=== PATIENT | female | born 1995 | race Caucasian/White ===

== ENCOUNTER 2020-01-27 10:49 | Outpatient (REF) | payer OTHER, MEDICAID, SELFPAY ==
--- NOTE | 2020-01-27 | US_ITS ---
EXAMINATION: US OBSTETRICAL CLINICAL INFORMATION: 24-year-old at 17.6 weeks of gestation Suspected anomaly COMPARISON: 01/24/2020 TECHNIQUE: Real-time transabdominal ultrasound was performed using C1-5 megahertz transducer. FINDINGS: A single, active, fetus is seen in vertex presentation. The placenta is anterior without previa, and the amniotic fluid volume is wnl. MEASUREMENTS: 1. Biparietal Diameter: 4.1 cm; 18.4 wks 2. Occipital Frontal Diameter: 5.1 cm 3. Head Circumference: 14.92 cm; 18.1 wks 4. Abdominal Circumference: 12.1 cm; 17.6 wks 5. Femur Length: 2.6 cm; 17.6 wks 6. Humerus Length: 2.6 cm; 18.1 wks 7. Tibia Length: 2.4 cm; 18.4 wks 8. Ulna Length: 2.4 cm; 18.3 wks 9. Lateral ventricle: 0.56 cm 10. Cerebellum: 1.7 cm; 17.6 wks 11. Cisterna Magna: 0.41 cm 12. Nuchal Fold: 2.9 mm 13. Heart Rate: 147 beats per minute Rt ovary: normal Lt ovary: Unable to visualize Cervical length 3.4 cm on T/A. GESTATIONAL AGE: 1. Established GA: 17.6 wks 2. GA from COUNTS INCLUDE 234 BEDS AT THE [facility]: 18.1 wks ESTIMATED DATE OF DELIVERY: 1. Established ADRIAN: 06/30/2020 2. ADRIAN from COUNTS INCLUDE 234 BEDS AT THE [facility]: 06/28/2020 ANATOMY: The visualized anatomy includes but not limited to: 1. Cranium: Normal 2. Intracranial anatomy: cavum septum pellucidi, lateral ventricles, choroid plexus, cerebellum, posterior fossa, third and fourth ventricles. 3. face: orbits, lip/palate, profile, nasal bone 4. Heart: four-chamber view of the heart, ventricular septum, foramen ovale, pulmonary vein, left and right outflow tracts, three-vessel view, 3 vessel trachea view, aortic and ductal arches, situs.. 5. Diaphragm: Normal 6. Abdominal wall: Normal 7. Cord Insertion: Normal 8. Spine: Cervical, thoracic, lumbar, sacral. 9. Stomach: Normal size and shape 10. Right Kidney: Normal 11. Left Kidney: Normal 12. 3 vessel cord: Normal 13. Upper extremity: Open hands, fifth digit. 14. Lower extremity: Tibia, fibula, bilateral feet. 15. Bladder: Normal 16. Genitalia: Female, patient aware IMPRESSION: 1. Single, living, intrauterine with appropriate biometry. 2. Normal survey DISCUSSION: I reviewed today's ultrasound findings. We discussed the limitations of ultrasound in diagnosing aneuploidy and other congenital abnormalities. I reviewed the differences between screening test and diagnostic test. Amniocentesis was discussed and declined. She was informed that the baseline incidence of congenital abnormalities is approximately 3-5%. Not all these conditions are diagnosable in utero. RECOMMENDATIONS: 1. No further ultrasound has been scheduled at this time. Thank you for allowing me to participate in her care. Visiting time 25 minutes. Majority of this visit was spent reviewing and discussing her care.
== END 2020-01-27 10:50 | disposition home or self-care (01) ==
LOC: HO.US 10:49
PROVIDERS: PCP Internal Medicine; Visit Provider Advanced Practice Midwife
DX: Z34.82 Encounter for supervision of other normal pregnancy, second trimester (principal); Z3A.17 17 weeks gestation of pregnancy
CPT/HCPCS: 76811

== ENCOUNTER → 2020-02-03 10:29 | Outpatient (BNVA) | payer OTHER, MEDICAID, SELFPAY | PROVIDERS: Visit Provider Obstetrics & Gynecology | DX: Z34.82 Encounter for supervision of other normal pregnancy, second trimester (principal) | CPT/HCPCS: 99212 ==

== ENCOUNTER → 2020-03-12 13:34 | Outpatient (BNVA) | payer OTHER, MEDICAID, SELFPAY | PROVIDERS: PCP Internal Medicine; Visit Provider Advanced Practice Midwife | DX: Z34.82 Encounter for supervision of other normal pregnancy, second trimester (principal) | CPT/HCPCS: 99212 ==

== ENCOUNTER → 2020-04-19 10:36 | Outpatient (BNVA) | payer OTHER, MEDICAID, SELFPAY | PROVIDERS: Visit Provider Obstetrics & Gynecology | DX: Z34.80 Encounter for supervision of other normal pregnancy, unspecified trimester (principal) | CPT/HCPCS: 81003; 99212 ==

== ENCOUNTER → 2020-05-07 11:32 | Outpatient (BNVA) | payer OTHER, MEDICAID, SELFPAY | PROVIDERS: PCP Internal Medicine; Visit Provider Advanced Practice Midwife | DX: Z34.80 Encounter for supervision of other normal pregnancy, unspecified trimester (principal) | CPT/HCPCS: 81003; 90471; 90715; 99212 ==

== ENCOUNTER → 2020-05-21 13:28 | Outpatient (BNVA) | payer OTHER, MEDICAID, SELFPAY | PROVIDERS: PCP Internal Medicine; Visit Provider Advanced Practice Midwife | DX: Z34.80 Encounter for supervision of other normal pregnancy, unspecified trimester (principal) | CPT/HCPCS: 81003; 99212 ==

== ENCOUNTER 2020-05-22 09:50 | Outpatient (REF) | payer OTHER, MEDICAID, SELFPAY ==
[2020-05-22 11:39] LABS: Hematocrit 25.6 % (37-47); Hemoglobin 7.7 g/dl (12.0-16.0); Mean Corpuscular HGB Conc 30.1 g/dl (31.0-35.0); Mean Corpuscular Hemoglobin 26.3 pg (27.0-33.0); Mean Corpuscular Volume 87.4 fL (80-98); Mean Platelet Volume 11.1 fL (9.4-12.3); Platelet Count 264 X10*3/uL (160-400); Red Blood Count 2.93 X10*6/uL (4.20-5.50); Red Cell Distribution Width 13.3 % (11.0-16.0); White Blood Count 7.2 X10*3/uL (4.8-10.8)
[2020-05-22 12:41] LABS: Glucose 1 Hour PP 50gm Dose 127 mg/dL (60-140)
[2020-05-23 08:11] LABS: Syphilis Screen Nonreactive (Nonreactive)
[2020-05-23 09:01] LABS: HIV AB/AG Nonreactive (Nonreactive); HIV Num 1 0.07 S/CO (0.00-0.99)
== END 2020-05-22 09:51 | disposition home or self-care (01) ==
LOC: HO.LAB 09:50
PROVIDERS: PCP Internal Medicine; Visit Provider Advanced Practice Midwife
DX: O99.019 Anemia complicating pregnancy, unspecified trimester (principal)
CPT/HCPCS: 36415; 85027; 86780; 87389

== ENCOUNTER → 2020-06-06 11:55 | Outpatient (BNVA) | payer OTHER, MEDICAID, SELFPAY | PROVIDERS: PCP Internal Medicine; Visit Provider Advanced Practice Midwife | DX: Z34.80 Encounter for supervision of other normal pregnancy, unspecified trimester (principal) | CPT/HCPCS: 81003; 99212 ==

== ENCOUNTER → 2020-06-14 13:41 | Outpatient (BNVA) | payer OTHER, MEDICAID, SELFPAY | PROVIDERS: PCP Internal Medicine; Visit Provider Advanced Practice Midwife | DX: Z76.89 Persons encountering health services in other specified circumstances (principal) | CPT/HCPCS: 99212 ==

== ENCOUNTER 2020-06-18 08:20 | Outpatient (REF) | payer OTHER, MEDICAID, SELFPAY | END 2020-06-18 08:21 | disposition home or self-care (01) | LOC: HO.LAB 08:20 | PROVIDERS: PCP Internal Medicine; Visit Provider Internal Medicine Medical Oncology | DX: Z13.89 Encounter for screening for other disorder (principal) ==

== ENCOUNTER 2020-06-21 08:29 | Outpatient (REF) | payer OTHER, MEDICAID, SELFPAY ==
[2020-06-22 14:02] LABS: C. trachomatis RNA TMA NOT DETECTED (NOT DETECTED); N. gonorrhoeae RNA TMA NOT DETECTED (NOT DETECTED)
== END 2020-06-21 08:30 | disposition home or self-care (01) ==
LOC: HO.LAB 08:29
PROVIDERS: PCP Internal Medicine; Visit Provider Advanced Practice Midwife
DX: O99.013 Anemia complicating pregnancy, third trimester (principal); D64.9 Anemia, unspecified; O26.893 Other specified pregnancy related conditions, third trimester; R51.9 Headache, unspecified; Z3A.37 37 weeks gestation of pregnancy; Z79.899 Other long term (current) drug therapy
CPT/HCPCS: 36415; 81003; 87081; 87491; 87591; 99212

== ENCOUNTER 2020-06-25 08:35 | Outpatient (REF) | payer OTHER, MEDICAID, SELFPAY | END 2020-06-25 08:36 | disposition home or self-care (01) | LOC: HO.MDS 08:35 | PROVIDERS: PCP Internal Medicine; Visit Provider Internal Medicine Medical Oncology | DX: D50.9 Iron deficiency anemia, unspecified (principal) | CPT/HCPCS: 96365; 96372; J1439 ==

== ENCOUNTER → 2020-06-28 08:33 | Outpatient (BNVA) | payer OTHER, MEDICAID, SELFPAY | PROVIDERS: PCP Internal Medicine; Visit Provider Advanced Practice Midwife | DX: O36.8190 Decreased fetal movements, unspecified trimester, not applicable or unspecified (principal) | CPT/HCPCS: 81003; 99212 ==

== ENCOUNTER 2020-06-28 10:25 | Outpatient (REF) | payer OTHER, MEDICAID, SELFPAY ==
--- NOTE | ~2020-06-28 | US_ITS ---
EXAMINATION: US OBSTETRICAL (BIOPHYSICAL PROFILE) CLINICAL INFORMATION: O36.8190 - Decreased movements. Gestational age 39 weeks 5 days. ADRIAN 06/30/2020. COMPARISON: Obstetrical ultrasound 01/27/2020, 12/23/2019, 12/15/2019 TECHNIQUE: Ultrasound of the pelvis is performed. Biophysical profile is performed over 30 minutes with assessment of breathing, gross body movement, tone, and qualitative amniotic fluid volume. Each matrix is scored 0 or 2, depending if the metric is present. Maximum total score possible is 8. Examination is not intended to assess for anomalies. FINDINGS: POSITION: Cephalic PLACENTA: Anterior AMNIOTIC FLUID INDEX: 9.8 cm CARDIAC ACTIVITY: 147 beats per minute BIOPHYSICAL PROFILE: Motion: 2 Tone: 2 Breathin Amniotic Fluid: 2 Total score: 8 US/US OB biophysical profile IMPRESSION: 1. Single intrauterine gestation in cephalic position with anterior placenta. 2. Total biophysical score is 8 (scale 0-8). 3. Amniotic fluid index 9.8 cm. 4. cardiac activity 147 beats per minute.
== END 2020-06-28 10:26 | disposition home or self-care (01) ==
LOC: HO.US 10:25
PROVIDERS: Visit Provider Advanced Practice Midwife
DX: O36.8130 Decreased fetal movements, third trimester, not applicable or unspecified (principal); Z3A.39 39 weeks gestation of pregnancy
CPT/HCPCS: 76819

== ENCOUNTER → 2020-07-17 10:57 | Outpatient (BNVA) | payer OTHER, MEDICAID, SELFPAY | PROVIDERS: PCP Internal Medicine; Visit Provider Advanced Practice Midwife | DX: Z39.2 Encounter for routine postpartum follow-up (principal) | CPT/HCPCS: 99212 ==

== ENCOUNTER 2020-08-27 09:19 | Outpatient (REF) | payer OTHER, MEDICAID, SELFPAY ==
[2020-08-28 12:33] LABS: BV Int Neg Control Negative (Negative); BV Int Pos Control Positive (Positive)
== END 2020-08-27 09:20 | disposition home or self-care (01) ==
LOC: HO.LAB 09:19
PROVIDERS: PCP Internal Medicine; Visit Provider Advanced Practice Midwife
DX: Z39.2 Encounter for routine postpartum follow-up (principal); N89.8 Other specified noninflammatory disorders of vagina
CPT/HCPCS: 87480; 87510; 87660; 99212

== ENCOUNTER → 2020-09-03 13:41 | Outpatient (BNVA) | payer OTHER, MEDICAID, SELFPAY | PROVIDERS: PCP Internal Medicine; Visit Provider Obstetrics & Gynecology ==

== ENCOUNTER → 2020-10-09 13:20 | Outpatient (BNVA) | payer OTHER, MEDICAID, SELFPAY | PROVIDERS: PCP Internal Medicine; Visit Provider Obstetrics & Gynecology ==

== ENCOUNTER 2020-10-11 06:11 | Day surgery (SDC) | payer OTHER, MEDICAID, SELFPAY ==
--- NOTE | 2020-10-09 10:56 | P.CONAN_ITS ---
Documented by User: Annie Mott 10/09/20 10:57 HPI - Anesthesia Eval Consult details Narrative: 25yo F for Bilateral Salpingectomy Laparoscopic PMFSH Active Problems Active Problems: All Active Problems (Updated 08/27/20 @ 10:16 by López Treviño) Supervision of other normal (Acute) Supervision of normal in third trimester (Acute) Iron deficiency anemia (Acute) Decreased movement (Acute) Variable heart rate decelerations, antepartum (Acute) care and examination (Acute) Encounter for visit (Acute) Depression screen (Acute) Vaginal discharge (Acute) Anemia (Acute) Past Medical History Medical History Anemia Family History Family History Mother Hx pulmonary embolism History of fibromyalgia Maternal Grandmother Hx of deep venous thrombosis Surgical History Surgical History Surgical history unknown Social History Social History Alcohol intake: former Patient Tobacco Use Status: Never used Tobacco Use of substances other than those prescribed or required for medical reasons: Yes Substance Use Type: Marijuana Are you DNR?: No Advance Directives: No Advance Directives Information Provided: Yes Recently lost weight without trying: No Nutrition Risks: No Nutritional Risk Patient : No FDLMP: now : No Poor oral hygiene: No Sexual orientation: Straight/Heterosexual Gender identity: female Meds Allergies Allergy/AdvReac Type Severity Reaction Status Date / Time No Known Allergies Allergy Verified 10/09/20 13:23 [No Known Allergies*] Exam Exam Date and Time: October 09, 2020 1056 Pertinent Lab Results Pertinent Lab Results: Laboratory Tests 06/15/20 06/15/20 13:30 13:30 WBC 8.6 Hgb 8.1 L Hct 27.1 L Plt Count 269 Sodium 135 Potassium 4.4 Chloride 104 Carbon Dioxide 21 L BUN 10 Creatinine 0.59 Assessment and Plan Assessment Anesthesia Assessment: Chart Reviewed Documented by User: Courtney Petersen 10/11/20 07:27 PMFSH Past Medical History Medical History Anemia Family History Family History Mother Hx pulmonary embolism History of fibromyalgia Maternal Grandmother Hx of deep venous thrombosis Family history of problems with anesthesia: No Surgical History Surgical History Surgical history unknown History of Problems with Anesthesia: No Social History Social History Alcohol intake: former Patient Tobacco Use Status: Never used Tobacco Use of substances other than those prescribed or required for medical reasons: Yes Substance Use Type: Marijuana Are you DNR?: No Advance Directives: No Advance Directives Information Provided: Yes Recently lost weight without trying: No Nutrition Risks: No Nutritional Risk Patient : No FDLMP: now : No Poor oral hygiene: No Sexual orientation: Straight/Heterosexual Gender identity: female Meds Allergies Allergy/AdvReac Type Severity Reaction Status Date / Time No Known Allergies Allergy Verified 10/09/20 13:23 [No Known Allergies*] Exam Height,Weight and Vital Signs: Vital Signs Temp Pulse Resp BP Pulse Ox 10/11/20 06:35 98.3 F 73 16 106/70 100 Pertinent Lab Results Pertinent Lab Results: Lab Results 10/11/20 Range/Units 06:16 Urine Test NEGATIVE (NEGATIVE) Airway Mallampati Class: II TM Dist: >3cm Neck ROM: Full Loose/Missing/Broken Teeth: Yes (Chipped bottom front) Heart: RRR Lungs: CTAB Assessment and Plan Assessment Anesthesia Assessment: Anesthesia Plan Discussed and Chart Reviewed Final Anesthetic Review NPO: Yes ASA Class: II Final Preanesthetic Review: No Changes in Pt Med Stat, Meds/Allgs Chart Reviewed, Consent Obtained/Reviewed and Anes Risks/Benef Reviewed Patient Risk: Low Procedure Risk: Low Assessment/Block/Sedation in SS: Assess/Block/Sedation-SS Anesthetic Plan Anesthetic Plan: GA Disposition: Standard PACU
[2020-10-11 06:24] VITALS: BMI 20.9
[2020-10-11 06:30] LABS: UPreg QC Valid YES; Urine Pregnancy NEGATIVE (NEGATIVE)
[2020-10-11 06:35] VITALS: BP 106/70; PULSE 73; RESP 16; TEMP 36.8; O2SAT 100
[2020-10-11] MEDS: Acetaminophen 325 MG TABLET 650 MG PO (06:39)
[2020-10-11] MEDS: Lactated Ringers 1,000 ML 100 ML IVCONT (06:52)
--- NOTE | 2020-10-11 07:06 | MHC.SHP ---
Pre-Procedural Eval Section A The patient is an INPATIENT: No Changes since office visit: No Cold of Flu in the past 2 weeks, No New Medical Problems, No Changes in Medication and No Patient answered all questions The History & Physical has been completed within 30 days and I have reviewed it.: Yes Section B Chief Complaint: Unwanted Fertility Allergies: Allergies Allergy/AdvReac Type Severity Reaction Status Date / Time No Known Allergies Allergy Verified 10/09/20 13:23 [No Known Allergies*] Plan I have reviewed the history and physical and performed a pertinent physical examination on my patient. No changes have occurred unless specified.
--- NOTE | 2020-10-11 07:07 | P.OP_ITS ---
Operative Note Operative Note Date of Service: 10/11/20 Narrative: Pre-Procedure Diagnosis: unwanted fertility Post-Procedure Diagnosis: unwanted fertility Procedures performed: Laparoscopic bilateral salpingectomy Indirect [employer] Infantryman: none Complications: none Specimens: bilateral fallopian tubes Disposition: Pacu Ms. Gan is 25yo who has completed her family planning and desires a permanent form of sterilization. Surgical Risks: The patient was informed of the risks and benefits of the procedure. Risks included but were not limited to bleeding, infection, injury to the vulva, vagina, or cervix, and uterine perforation. The patient was counseled on the risk of sterilization failure being about 1% on average. The patient was informed that in the event a occurs, the risk of ectopic is increased. The patient expressed understanding of the risks involved, all qu estions were answered, and the patient consented to the procedure. The patient had valid sterilization consent at the time of the procedure. The patient was taken to the operating room where a time out was performed to confirm correct patient and correct procedure. General anesthesia was established. The patient was then positioned on the operating table in the dorsal lithotomy position with the legs supported using stirrups. All pressure points were padded and a Tootie hugger was placed to maintain control of core body temperature. The patient was then prepped and draped in the usual sterile f ashion. A red rubber catheter was inserted the bladder emptied. A sponge stick was placed in the vagina for uterine manipulation. Attention was turned to the abdomen where a 5mm vertical infraumbilical incision was made. The 5mm trocar was introduced under direct visualization using the laparoscopy within the sleeve of the trocar. After intra-abdominal placement had been confirmed, the trocar was removed leaving the sleeve in place. The camera was introduced and pneumoperitoneum was established using carbon dioxide. Inspection of the abdominal cavity showed no gross abnormalities and there was no evidence of injury to the bowel, bladder, or vasculature. Attention was turned to the pelvis. The patient was placed into Trendelenburg position. The fallopian tubes and ovaries were visualized bilaterally.There were no abnormalities noted. A small incision was made on the patient's left approximately 2cm superior to and 2cm medial to the left ASIS. A 5mm trocar was introduced through this incision under direct visualization with the laparoscope. A small incision was then made on the patient's right approximately 2cm superior to and 2cm medial to the right ASIS. A 5mm trocar was introduced through this incision under direct visualization with the laparoscope. The fallopian tubes were inspected bilaterally and the fimbriated ends of the fallopian tube were visualized bilaterally. The distal end of the left tube was grasped and lifted up and being careful to avoid the ovarian vessels, salpingectomy was performed walking the Ligasure device from the distal to the medial end of the tube, where it was cauterized and cut from the uterus at the cornua and removed through the trocar. The identical procedure was then performed on the right. The tubes were sent to pathology for analysis. The pneumoperitoneum was then evacuated. The laparoscope was removed and the trocar sleeves were removed. The sponge stick was removed from the vagina. The skin incisions were closed each with a single interrupted 3-0 Vicryl suture and Dermabond was applied. Good hemostasis was confirmed. The patient was transferred to the recovery room in stable condition. All needle, sponge, and instrument counts were noted to be correct x2 at the end of the procedure.
[2020-10-11 08:32] VITALS: BP 113/64; PULSE 112; RESP 12; TEMP 36.6; O2SAT 100
[2020-10-11 08:37] VITALS: BP 111/57; PULSE 101; RESP 16; O2SAT 100
[2020-10-11 08:42] VITALS: BP 109/64; PULSE 85; RESP 16; O2SAT 100
[2020-10-11 08:47] VITALS: BP 105/76; PULSE 82; RESP 16; O2SAT 100
[2020-10-11] MEDS: oxyCODONE HCl Immed Release 5 MG TABLET PO (08:51)
[2020-10-11 09:02] VITALS: BP 110/71; PULSE 81; RESP 16; TEMP 36.8; O2SAT 98
== END 2020-10-11 09:15 | disposition home or self-care (01) ==
LOC: HO.SSS 06:12
PROVIDERS: Nurse Practitioner; PCP Internal Medicine; Visit Provider Obstetrics & Gynecology
PROC: (CPT 58661; principal; 2020-10-11 07:30)
DX: Z30.2 Encounter for sterilization (principal); D64.9 Anemia, unspecified; Z79.899 Other long term (current) drug therapy; F12.90 Cannabis use, unspecified, uncomplicated
CPT/HCPCS: 58661; 81025; 88302; J1100; J2250; J2405; J3010

== ENCOUNTER 2020-10-26 11:57 | Outpatient (REF) | payer OTHER, MEDICAID, SELFPAY ==
[2020-10-27 12:00] LABS: BV Int Neg Control Negative (Negative); BV Int Pos Control Positive (Positive)
== END 2020-10-26 11:58 | disposition home or self-care (01) ==
LOC: HO.LAB 11:57
PROVIDERS: PCP Internal Medicine; Visit Provider Obstetrics & Gynecology
DX: Z09 Encounter for follow-up examination after completed treatment for conditions other than malignant neoplasm (principal); N89.8 Other specified noninflammatory disorders of vagina; F12.90 Cannabis use, unspecified, uncomplicated
CPT/HCPCS: 87480; 87510; 87660

== ENCOUNTER 2020-11-14 15:24 | Outpatient (REF) | payer OTHER, MEDICAID, SELFPAY ==
[2020-11-15 02:39] LABS: CT PCR NOT DETECTED (Not Detect.); NG PCR NOT DETECTED (Not Detect.)
[2020-11-15 13:03] LABS: BV Int Neg Control Negative (Negative); BV Int Pos Control Positive (Positive)
== END 2020-11-14 15:25 | disposition home or self-care (01) ==
LOC: HO.LAB 15:24
PROVIDERS: PCP Internal Medicine; Visit Provider Obstetrics & Gynecology
DX: Z11.3 Encounter for screening for infections with a predominantly sexual mode of transmission (principal); N76.0 Acute vaginitis
CPT/HCPCS: 87480; 87491; 87510; 87591; 87660

== ENCOUNTER → 2020-11-19 13:59 | Outpatient (BNVA) | payer OTHER, MEDICAID, SELFPAY | PROVIDERS: PCP Internal Medicine; Visit Provider Advanced Practice Midwife ==

== ENCOUNTER 2020-11-29 14:48 | Outpatient (REF) | payer OTHER, MEDICAID, SELFPAY | END 2020-11-29 14:49 | disposition home or self-care (01) | LOC: HO.HMGCLDS 14:48 | PROVIDERS: PCP Internal Medicine; Visit Provider Internal Medicine | DX: Z20.822 Contact with and (suspected) exposure to COVID-19 (principal) | CPT/HCPCS: C9803; U0003; U0005 ==

== ENCOUNTER 2020-12-26 16:39 | Outpatient (REF) | payer OTHER, MEDICAID, SELFPAY | END 2020-12-26 16:40 | disposition home or self-care (01) | LOC: HO.LNP 16:39 | PROVIDERS: Visit Provider Internal Medicine | DX: Z20.822 Contact with and (suspected) exposure to COVID-19 (principal); J06.9 Acute upper respiratory infection, unspecified | CPT/HCPCS: U0003; U0005 ==

== ENCOUNTER 2020-12-26 16:41 | Emergency (ER) | payer OTHER, MEDICAID, SELFPAY ==
--- NOTE | ~2020-12-26 | XR_ITS ---
EXAMINATION: XR CHEST CLINICAL INFORMATION: COVID 19 positive COMPARISON: 12/13/2019 TECHNIQUE: Frontal view of the chest was obtained. FINDINGS: Lungs are clear. No focal consolidation or mass. Normal pulmonary vascularity. No pleural effusion or pneumothorax. Normal heart size. No acute osseous abnormality. XR/XR chest 1V IMPRESSION: The lungs are clear.
--- NOTE | ~2020-12-26 | US_ITS ---
EXAMINATION: US PELVIS CLINICAL INFORMATION: Heavy vaginal bleeding with clots. Right suprapubic pain COMPARISON: None TECHNIQUE: Ultrasound of the pelvis is performed using both transabdominal and transvaginal transducers along with Doppler. Transvaginal imaging is performed due to inadequate visualization transabdominally. FINDINGS: Uterus: The uterus is anteverted and measures 7.8 x 3.7 x 4.6 cm. Cervix is normal in appearance. The double wall endometrial thickness is 0.2 mm. The uterus is smooth in contour and has normal myometrial echogenicity. No visible fibroid. Adnexa: Both ovaries are visualized. There is normal color flow to the adnexa. There is no ovarian torsion. There is no pelvic ascites or fluid collection. No additional findings. Right ovary measures 3.4 x 2.4 x 2.9 cm. No adnexal mass. Left ovary measures 2.2 x 2.3 x 1.3 cm. No adnexal mass US/US pelvic and transvaginal IMPRESSION: Thin endometrial stripe. Normal appearance of the ovaries.
[2020-12-26 17:05] VITALS: BP 103/54; PULSE 78; RESP 16; TEMP 36.1; O2SAT 98; BMI 20.9
--- NOTE | 2020-12-26 17:50 | ED_ITS ---
HPI - Female Genitourinary General Chief complaint: Vaginal Bleeding Stated complaint: vag bleeding, lose of smell and taste Time Seen by Provider: 12/26/20 17:32 Source: patient Mode of arrival: ambulatory History of Present Illness HPI Narrative: 25-year-old female with a past medical history of bilateral salpingectomy 09/2020, anemia on iron supplements, presenting to the ED complaining of heavy vaginal bleeding with clots x2 days. Reports blood is bright red filling a pad about every hour with associated right side/suprapubic cramping. Admits to generalized fatigue, mild SOB. Reports loss of taste and smell requesting COVID-19 testing. Denies fever, chills, nausea/vomiting, dysuria/hematuria, vaginal discharge, flank pain MD elicited complaint: vaginal bleeding Related Data Home Medications Medication Instructions Recorded Confirmed ferrous sulfate 325 mg (65 mg 325 mg PO DAILY 12/26/20 iron) tablet (Feosol) Previous Rx's Medication Instructions Recorded acetaminophen 650 mg 650 mg PO Q8H #60 tab 10/09/20 tablet,extended release ibuprofen 800 mg tablet 800 mg PO Q8H #60 tab 10/09/20 Allergies Allergy/AdvReac Type Severity Reaction Status Date / Time No Known Allergies Allergy Verified 12/26/20 14:11 [No Known Allergies*] Review of Systems Review of Systems: Constitutional: No Fever, No Chills, + Fatigue, + Malaise, + Loss of taste and smell ENT/Mouth: No Ear Pain, No Nasal Congestion, No Sinus Pain, No sore throat Eyes: No Eye Pain, No Swelling Cardiovascular: No Chest Pain, + SOB, No Palpitations Respiratory: No Cough, No Sputum, No Dyspnea Gastrointestinal: No Nausea, No Vomiting, No Diarrhea, No Constipation, + Abdominal pain Genitourinary: + irregular bleeding, No Dysuria, No Urinary Frequency, No Hematuria, No Urgency, No Flank Pain, No vaginal discharge Musculoskeletal: No joint pain, No Myalgias, No Joint Swelling Skin: No Skin Lesions, No rash Neuro: No Weakness, No Numbness, No Paresthesias, No Loss of Consciousness, +Lightheadedness, No Headache Yes all other systems are reviewed and are negative PMFSH Past Medical History Attestation statement: The following information was validated with the patient. Medical History Anemia Surgical History H/O bilateral salpingectomy Surgical history unknown Family History Family History Mother Hx pulmonary embolism History of fibromyalgia Maternal Grandmother Hx of deep venous thrombosis Social History Social History Alcohol intake: former Patient Tobacco Use Status: Never used Tobacco Substance Use Type: Marijuana Advance Directives: No Advance Directives Information Provided: Yes Sexual orientation: Straight/Heterosexual Gender identity: Female Physical Exam Vital Signs: Vital Signs: Last Vital Signs Temp 97.0 F 12/26/20 17:05 Pulse 78 12/26/20 17:05 Resp 16 12/26/20 17:05 BP 103/54 L 12/26/20 17:05 Pulse Ox 98 12/26/20 17:05 Body Mass Index 20.9 Const: General: cooperative and healthy appearing Orientation/consciousness: patient oriented x3 Limitations: no limitations HENMT: Head: Yes normal to inspection Ears: hearing grossly normal bilaterally General nose exam: Normal external nose present Face and sinus: Yes normal facial exam Eyes: General: appearance normal, both eyes and all related structures EOM: EOMs intact bilaterally Neck: Neck: Yes normal visual inspection Resp: Effort & Inspection: normal respiratory effort Auscultation: clear to auscultation bilaterally, no rales, no rhonchi and no wheezes Cardio: Rate: regular rate Heart sounds: S1 normal heart sound present and S2 normal heart sound present GI: Inspection: Yes normal to inspection Palpation (GI): Soft to palpation, nontender, no guarding and not rigid : Other: No evidence of active hemorrhage. Bleeding cleared with Q-tips. General: Yes no CVA tenderness Speculum Exam - Vagina: vaginal bleeding and nontender Speculum Exam - Cervix: normal appearance of the cervix Bimanual exam- vagina & uterus: normal bimanual exam and no cervical motion tenderness Bimanual Exam- Adnexa, other: no tenderness OB/external & speculum: vaginal bleeding Back/Spine/Pelvis: Back: no CVA tenderness Skin: Rashes: no rashes Wounds: no wounds Neuro: General: patient oriented x3, tone normal and moves all extremities Gait exam (Neuro): Normal gait present Extrem: General: Yes normal to inspection Course Course Course Narrative: -1899--leukopenia. H&H is stable. Coags WNL. AST mildly elevated, labs otherwise unremarkable -Patient is COVID-19 + > will obtain CXR XR chest 1V IMPRESSION: The lungs are clear. 2056-- US pelvic and transvaginal IMPRESSION: Thin endometrial stripe. Normal appearance of the ovaries. -beta quant negative. Results discussed with patient including worrisome signs and symptoms and strict return precautions. Discussed COVID status and needed self isolation for 10-14 days. She verbalized understanding feel safe for discharge home -2157--UA with RBCs as expected, not infected. MDM - Female Genitourinary MDM Narrative Medical decision making narrative: 25-year-old female with a past medical history of bilateral salpingectomy 09/2020, anemia on iron supplements, pr esenting to the ED complaining of heavy vaginal bleeding with clots x2 days. Admits to generalized fatigue, mild SOB. On exam mildly hypotensive, and 80/nontoxic, abdomen soft/nontender, no CVAT. On pelvic vaginal bleeding noted, no evidence of active hemorrhage. No CMT or adnexal tenderness. Exam not consistent with PID. Concern for DUB/menorrhagia. Rule out anemia and ovarian pathology. Low concern for appendicitis/pyelo/colitis/diverticulitis. Plan: Labs, UA, pelvic exam, pelvic ultrasound, STI testing, reassess Medical Records Attestation: I reviewed the patient's medical records. Lab Data Attestation: I reviewed the patient's lab results. Result diagrams: 12/26/20 18:32 12/26/20 18:31 Labs: Lab Results 12/26/20 12/26/20 12/26/20 Range/Units 18:31 18:31 18:32 WBC 2.8 L (4.8-10.8) X10*3/uL RBC 4.22 D (4.20-5.50) X10*6/uL Hgb 12.7 D (12.0-16.0) g/dl Hct 37.5 D (37-47) % MCV 88.9 (80-98) fL MCH 30.1 (27.0-33.0) pg MCHC 33.9 (31.0-35.0) g/dl RDW 12.4 (11.0-16.0) % Plt Count 216 (160-400) X10*3/uL MPV 10.1 (9.4-12.3) fL Immature Gran % (Auto) 0.0 (0.0-0.4) % Neut % (Auto) 61.5 (45-73) % Lymph % (Auto) 26.5 (20-40) % [place] % (Auto) 10.9 (2-11) % Eos % (Auto) 1.1 (0-4) % Baso % (Auto) 0.0 (0-2) % Lymph # (Auto) 0.7 L (1.2-4.9) X10*3/uL Dickenson # (Auto) 0.3 (0.1-1.2) X10*3/uL Eos # (Auto) 0.0 (0.0-0.4) X10*3/uL Baso # (Auto) 0.0 (0.0-0.2) X10*3/uL Abs Immat Gran (auto) 0.00 (0.00-0.03) X10*3/uL Absolute Neuts (auto) 1.7 L (2.0-8.3) X10*3/uL Absolute Nucleated RBC 0.000 (0.0-0.012) X10*3/uL Nucleated RBC % (auto) 0.0 (0.0-0.2) /100WBC PT (9.9-13.0) SEC INR (0.9-1.1) APTT (24.1-38.0) SEC Sodium 138 (135-145) mmol/L Potassium 4.2 (3.3-5.1) mmol/L Chloride 106 (96-108) mmol/L Carbon Dioxide 23 (22-29) mmol/L Anion Gap 13 (12-20) BUN 8 L (9-16) mg/dL Creatinine 0.60 (0.5-1.4) mg/dL Estim Creat Clear Calc 120.6 Estimated GFR > 60 Random Glucose 90 (60-115) mg/dL Calcium 9.0 (8.4-10.2) mg/dL Magnesium 1.9 (1.6-2.6) mg/dL Total Bilirubin 0.3 (0.0-1.0) mg/dL Direct Bilirubin < 0.2 (0.0-0.5) mg/dL AST 38 H D (5-31) U/L ALT 26 (0-31) U/L Alkaline Phosphatase 91 D (39-117) U/L Total Protein 7.3 (6.5-8.0) g/dL Albumin 4.2 D (3.5-5.0) g/dL Lipase 22 (8-78) U/L Beta HCG, Quant < 2 mIU/mL Urine Color Urine Appearance Urine pH (5.0-8.0) Ur Specific [place] (1.005-1.025) Urine Protein (NEG-TRACE) MG/DL Urine Glucose (UA) (NEG) MG/DL Urine Ketones (NEG) MG/DL Urine Blood (NEG) Urine Nitrite (NEG) Ur Leukocyte Esterase (NEG) Urine RBC (0) /HPF Urine WBC (0-4) /HPF Ur Squamous Epith Cells /LPF Urine Bacteria /LPF Urine Test (NEGATIVE) COVID-19 ([facility]) Positive A (Negative) COVID-19 Clin Com See Note 12/26/20 12/26/20 12/26/20 Range/Units 18:32 21:37 21:37 WBC (4.8-10.8) X10*3/uL RBC (4.20-5.50) X10*6/uL Hgb (12.0-16.0) g/dl Hct (37-47) % MCV (80-98) fL MCH (27.0-33.0) pg MCHC (31.0-35.0) g/dl RDW (11.0-16.0) % Plt Count (160-400) X10*3/uL MPV (9.4-12.3) fL Immature Gran % (Auto) (0.0-0.4) % Neut % (Auto) (45-73) % Lymph % (Auto) (20-40) % Dickenson % (Auto) (2-11) % Eos % (Auto) (0-4) % Baso % (Auto) (0-2) % Lymph # (Auto) (1.2-4.9) X10*3/uL [place] # (Auto) (0.1-1.2) X10*3/uL Eos # (Auto) (0.0-0.4) X10*3/uL Baso # (Auto) (0.0-0.2) X10*3/uL Abs Immat Gran (auto) (0.00-0.03) X10*3/uL Absolute Neuts (auto) (2.0-8.3) X10*3/uL Absolute Nucleated RBC (0.0-0.012) X10*3/uL Nucleated RBC % (auto) (0.0-0.2) /100WBC PT 11.6 (9.9-13.0) SEC INR 1.0 (0.9-1.1) APTT 37.4 (24.1-38.0) SEC Sodium (135-145) mmol/L Potassium (3.3-5.1) mmol/L Chloride (96-108) mmol/L Carbon Dioxide (22-29) mmol/L Anion Gap (12-20) BUN (9-16) mg/dL Creatinine (0.5-1.4) mg/dL Estim Creat Clear Calc Estimated GFR Random Glucose (60-115) mg/dL Calcium (8.4-10.2) mg/dL Magnesium (1.6-2.6) mg/dL Total Bilirubin (0.0-1.0) mg/dL Direct Bilirubin (0.0-0.5) mg/dL AST (5-31) U/L ALT (0-31) U/L Alkaline Phosphatase (39-117) U/L Total Protein (6.5-8.0) g/dL Albumin (3.5-5.0) g/dL Lipase (8-78) U/L Beta HCG, Quant mIU/mL Urine Color YELLOW Urine Appearance HAZY Urine pH 6.0 (5.0-8.0) Ur Specific [place] 1.015 (1.005-1.025) Urine Protein NEG (NEG-TRACE) MG/DL Urine Glucose (UA) NEG (NEG) MG/DL Urine Ketones 5 (NEG) MG/DL Urine Blood 3+ H (NEG) Urine Nitrite NEG (NEG) Ur Leukocyte Esterase NEG (NEG) Urine RBC 30-49 H (0) /HPF Urine WBC 0 (0-4) /HPF Ur Squamous Epith Cells 2+ /LPF Urine Bacteria 1+ /LPF Urine Test NEGATIVE (NEGATIVE) COVID-19 ([facility]) (Negative) COVID-19 Clin Com Discharge Plan Discharge Clinical Impression: COVID-19, Vaginal bleeding Patient Disposition: Home, Self-Care Instructions: Dysfunctional Uterine Bleeding (ED), COVID-19 (Coronavirus Disease 2019) (ED) Additional Instructions: YOU HAVE COVID-19. YOU NEED TO SELF ISOLATE FOR 10-14 DAYS CONSIDER BUYING A PULSE OXIMETER AT HOME TO MONITOR OXYGEN, IF IT IS DROPPING INTO THE LOW 90S OR BELOW 90 RETURN TO THE ED IMMEDIATELY. YOU CAN EXPECT TO HAVE FEVER, SOME CHEST DISCOMFORT AND SHORTNESS OF BREATH HOWEVER THIS IS CONSTANT WORSENING, OR FEVERS ARE RESOLVED MEDICATIONS WHICH RETURN TO THE ED IMMEDIATELY YOUR BLOOD COUNT IS STABLE IT IS IMPORTANT FOR YOU TO FOLLOW-UP WITH OBGYN YOUR ULTRASOUND SHOWED A THIN ENDOMETRIAL STRIPE IF HER BLEEDING PERSISTS OR WORSENS, HAVE LIGHTHEADEDNESS/DIZZINESS, PERSISTENT OR WORSENING ABDOMINAL PAIN, VAGINAL DISCHARGE PLEASE RETURN TO THE ED Prescriptions: No Action ibuprofen 800 mg tablet 800 mg PO Q8H Qty: 60 RF: 1 acetaminophen 650 mg tablet extended release 650 mg PO Q8H Qty: 60 RF: 1 ferrous sulfate [Feosol] 325 mg (65 mg iron) tablet 325 mg PO DAILY RF: 0 Referrals: Lio Pool MD [Physician] - 5 days Interventions: ED Discharge Assessment Last Done: 12/26/20 22:10
[2020-12-26] MEDS: Acetaminophen 325 MG TABLET 650 MG PO (18:34)
[2020-12-26] MEDS: 0.9 % Sodium Chloride 1,000 ML 999 ML IVCONT (18:35)
[2020-12-26 18:37] LABS: MANUAL DIFF FLAG NO
[2020-12-26 18:43] LABS: Prothrombin Time 11.6 SEC (9.9-13.0)
[2020-12-26 18:44] LABS: Eosinophils Percent Auto 1.1 % (0-4); Hematocrit 37.5 % (37-47); Hemoglobin 12.7 g/dl (12.0-16.0); Lymphocytes Absolute Auto 0.7 X10*3/uL (1.2-4.9); Lymphocytes Percent Auto 26.5 % (20-40); Mean Corpuscular HGB Conc 33.9 g/dl (31.0-35.0); Mean Corpuscular Hemoglobin 30.1 pg (27.0-33.0); Mean Corpuscular Volume 88.9 fL (80-98); Mean Platelet Volume 10.1 fL (9.4-12.3); Monocytes Absolute Auto 0.3 X10*3/uL (0.1-1.2); Monocytes Percent Auto 10.9 % (2-11); Neutrophils Absolute Auto 1.7 X10*3/uL (2.0-8.3); Neutrophils Percent Auto 61.5 % (45-73); Platelet Count 216 X10*3/uL (160-400); Red Blood Count 4.22 X10*6/uL (4.20-5.50); Red Cell Distribution Width 12.4 % (11.0-16.0); White Blood Count 2.8 X10*3/uL (4.8-10.8)
[2020-12-26 18:46] LABS: Partial Thromboplastin Time 37.4 SEC (24.1-38.0)
[2020-12-26 18:50] LABS: COVID-19 Test Positive (Negative)
[2020-12-26 19:01] LABS: Alanine Aminotransferase 26 U/L (0-31); Albumin Level 4.2 g/dL (3.5-5.0); Alkaline Phosphatase 91 U/L (39-117); Anion Gap 13 (12-20); Aspartate Amino Transferase 38 U/L (5-31); Bilirubin Direct < 0.2 mg/dL (0.0-0.5); Bilirubin Total 0.3 mg/dL (0.0-1.0); Blood Urea Nitrogen 8 mg/dL (9-16); Carbon Dioxide 23 mmol/L (22-29); Chloride 106 mmol/L (96-108); Creatinine Clr Calc Pharmacy 120.6; Estimated Glomerular Filt Rate > 60; Glucose Random 90 mg/dL (60-115); Lipase 22 U/L (8-78); Magnesium 1.9 mg/dL (1.6-2.6); Potassium 4.2 mmol/L (3.3-5.1); Sodium 138 mmol/L (135-145); Total Protein 7.3 g/dL (6.5-8.0)
[2020-12-26 19:39] LABS: HCG Quantitative < 2 mIU/mL
[2020-12-26 21:49] LABS: Appearance Urine HAZY; Color Urine YELLOW; Glucose Urine UA NEG (NEG); Leukocyte Esterase Urine NEG (NEG); Nitrite Urine NEG (NEG); Specific Gravity - Urine 1.015 (1.005-1.025); UACC Culture Trigger NO; Urine Blood 3+ (NEG); Urine Ketones 5 MG/DL (NEG); Urine Protein NEG (NEG-TRACE)
[2020-12-26 21:51] LABS: UPreg QC Valid YES; Urine Pregnancy NEGATIVE (NEGATIVE)
[2020-12-26 21:56] LABS: Bacteria Urine 1+ /LPF; RBC Urine 30-49 /HPF (0); Squamous Epithelial Cell Urine 2+ /LPF; WBC Urine 0 /HPF (0-4)
[2020-12-27 02:33] LABS: CT PCR NOT DETECTED (Not Detect.); NG PCR NOT DETECTED (Not Detect.)
[2020-12-27 08:46] LABS: BV Int Neg Control Negative (Negative); BV Int Pos Control Positive (Positive)
== END 2020-12-26 22:46 | disposition home or self-care (01) ==
PROVIDERS: Physician Assistant; Emergency Provider Emergency Medicine Emergency Medical Services; PCP Internal Medicine
DX: U07.1 COVID-19 (principal)
CPT/HCPCS: 36415; 71045; 76830; 76856; 80048; 80076; 81001; 81025; 83690; 83735; 84702; 85025; 85610; 85730; 87480; 87491; 87510; 87591; 87635; 87660; 96360; 99283; 99284

== ENCOUNTER 2021-01-04 14:19 | Outpatient (REF) | payer OTHER, MEDICAID, SELFPAY | END 2021-01-04 14:20 | disposition home or self-care (01) | LOC: HO.LAB 14:19 | PROVIDERS: PCP Internal Medicine; Visit Provider Internal Medicine | DX: Z20.822 Contact with and (suspected) exposure to COVID-19 (principal) | CPT/HCPCS: C9803; U0003; U0005 ==

== ENCOUNTER 2021-05-16 18:39 | Outpatient (REF) | payer OTHER, MEDICAID, SELFPAY ==
[2021-05-16 18:54] LABS: Appearance Urine CLEAR; Color Urine YELLOW; Glucose Urine UA NEG (NEG); Leukocyte Esterase Urine TRACE (NEG); Nitrite Urine NEG (NEG); PH 6.5 (5.0-8.0); Specific Gravity - Urine 1.015 (1.005-1.025); UACC Culture Trigger YES; Urine Blood 3+ (NEG); Urine Ketones NEG (NEG); Urine Protein 1+ MG/DL (NEG-TRACE)
[2021-05-16 19:06] LABS: Squamous Epithelial Cell Urine 1+ /LPF
[2021-05-16 19:07] LABS: Bacteria Urine TRACE /LPF; Mucus Urine 1+ /LPF
== END 2021-05-16 18:40 | disposition home or self-care (01) ==
LOC: HO.LNP 18:39
PROVIDERS: Visit Provider Nurse Practitioner Acute Care
DX: N39.0 Urinary tract infection, site not specified (principal)
CPT/HCPCS: 81001; 87086

== ENCOUNTER 2021-09-10 09:54 | Outpatient (REF) | payer OTHER, MEDICAID, SELFPAY ==
[2021-09-10 16:54] LABS: CT PCR NOT DETECTED (Not Detect.); NG PCR NOT DETECTED (Not Detect.)
== END 2021-09-10 09:55 | disposition home or self-care (01) ==
LOC: HO.LAB 09:54
PROVIDERS: Obstetrics & Gynecology; PCP Internal Medicine; Visit Provider Advanced Practice Midwife
DX: Z01.419 Encounter for gynecological examination (general) (routine) without abnormal findings (principal)
CPT/HCPCS: 87491; 87591; 88142

== ENCOUNTER 2022-05-08 14:25 | Outpatient (REF) | payer OTHER, MEDICAID, SELFPAY | END 2022-05-08 14:26 | disposition home or self-care (01) | LOC: HO.LNP 14:25 | PROVIDERS: Visit Provider Internal Medicine | DX: R31.9 Hematuria, unspecified (principal); R35.0 Frequency of micturition; R30.0 Dysuria | CPT/HCPCS: 87086 ==

== ENCOUNTER 2023-02-02 09:08 | Outpatient (AMB) | payer OTHER, MEDICAID, SELFPAY ==
--- NOTE | 2023-02-02 09:19 | MHC.OFFWIV ---
Intake Vital Signs 02/02/23 09:26 Weight 120 lb BP 106/58 L Blood Pressure Location Rt brachial Pulse 80 Pulse Source Pulse Oximeter Pulse Oximetry (%) 95 Oxygen Delivery Method Room Air Intake Visit Reasons: EP ?UTI Intake Note: Patient here for UTI that started yesterday. she states she is unsure how it came about but she has had a lot of intercourse over the weekend. Patient Tobacco Use Status: Never used Tobacco Allergies No Known Allergies [No Known Allergies*] Allergy (Verified 02/02/23 09:51) Medication List - Last Reconciled 02/02/23 by Parth Cisse MD nitrofurantoin monohyd/m-cryst 100 mg (Macrobid) 100 mg PO Q12H 5 days Do you need a note to return to daycare/school/sports/work: Yes HPI EP ?UTI HPI Details Patient presents for a sick visit. Reports symptoms of increased frequency of urination, burning on urination and discomfort in the suprapubic area. Symptoms started in the past few days. No fevers or chills. No nausea or vomiting. PFSH Medical History Anemia Surgical History H/O bilateral salpingectomy Family History Mother Hx pulmonary embolism History of fibromyalgia Maternal Grandmother Hx of deep venous thrombosis Social History Housing: Apartment Alcohol intake: current Alcohol intake frequency: holidays/special occasions only Patient Tobacco Use Status: Never used Tobacco Second Hand Smoke Exposure: Yes Substance Use Type: Marijuana service: No Current occupational status: employed Sexual orientation: Straight/Heterosexual Gender identity: Female Female Reproductive History Menstrual Age of Menarche: 14 Physical Exam Vital Signs: Last Vital Signs Pulse 80 02/02/23 09:26 BP 106/58 L 02/02/23 09:26 Pulse Ox 95 02/02/23 09:26 Oxygen Delivery Method Room Air 02/02/23 09:26 General: Yes bladder normal to palpation and Yes no CVA tenderness Bimanual exam- vagina & uterus: bladder normal to palpation Back/Spine/Pelvis Back: no CVA tenderness Results AMB Urinalysis, Automated UA Leukoctes 125 Luisa/uL Last Edit by ROCK Dangelo on 02/02/23 09:35 UA Nitrite Positive Last Edit by Josue Summers CCM on 02/02/23 09:35 UA Urobilinogen 2 mg/dL Last Edit by Josue Summers [facility] on 02/02/23 09:35 UA Protein 30 mg/dL Last Edit by Josue Summers [facility] on 02/02/23 09:35 UA pH 6 Last Edit by Josue Summers [facility] on 02/02/23 09:35 UA Blood 200 [place]/uL Last Edit by Josue Summers [facility] on 02/02/23 09:35 UA Specific [place] 1.015 Last Edit by Josue Summers [facility] on 02/02/23 09:35 UA Ketone Negative Last Edit by Josue Summers [facility] on 02/02/23 09:35 UA Bilirubin 2 mg/dL Last Edit by Josue Summers [facility] on 02/02/23 09:35 UA Glucose 100 mg/dL Last Edit by Josue Summers [facility] on 02/02/23 09:35 Results Reviewed Results Reviewed: Laboratory Last Values Urine pH (Auto) 6 02/02/23 09:33 Specific [place] (Auto) 1.015 02/02/23 09:33 Urine Protein (Auto) 30 mg/dL 02/02/23 09:33 Glucose (UA)(Auto) 100 mg/dL 02/02/23 09:33 Urine Ketones (Auto) Negative 02/02/23 09:33 Urine Blood (Auto) 200 [place]/uL 02/02/23 09:33 Urine Nitrite (Auto) Positive 02/02/23 09:33 Urine Bilirubin (Auto) 2 mg/dL 02/02/23 09:33 Urine Urobilinogen (Auto) 2 mg/dL 02/02/23 09:33 Leukocyte Esterase (Auto) 125 Luisa/uL 02/02/23 09:33 Assessment & Plan Assessment & Plan (1) UTI (urinary tract infection): Code(s): N39.0 - Urinary tract infection, site not specified Qualifiers: Urinary tract infection type: acute cystitis Plan: Take antibiotics and Pyridium as directed. Increase fluid intake. If symptoms of burning persist, new onset of fever or lower back pain, to follow-up at the clinic. Urinalysis shows sugar in the urine. Blood work has been ordered Orders: Orders AMB Urinalysis Automated Today Z13.9 - Encounter for screening, unspecified Coding Level of Care Code Est Pt Level 3 (12101) Diagnoses UTI (urinary tract infection) N39.0 Urinary tract infection type: acute cystitis
[2023-02-02 09:26] VITALS: BP 106/58; PULSE 80; O2SAT 95
== END 2023-02-02 10:01 | disposition home or self-care (01) ==
PROVIDERS: PCP Internal Medicine; Visit Provider Internal Medicine
DX: R35.0 Frequency of micturition (principal); N39.0 Urinary tract infection, site not specified
CPT/HCPCS: 81003; 99213

== ENCOUNTER 2023-02-02 09:58 | Outpatient (REF) | payer OTHER, MEDICAID, SELFPAY ==
[2023-02-02 14:20] LABS: Anion Gap 15 (12-20); Blood Urea Nitrogen 7 mg/dL (9-16); Calcium 9.6 mg/dL (8.4-10.2); Carbon Dioxide 24 mmol/L (22-29); Chloride 104 mmol/L (96-108); Estimated Glomerular Filt Rate > 60; Glucose Random 81 mg/dL (60-115); Potassium 3.8 mmol/L (3.3-5.1); Sodium 139 mmol/L (135-145)
[2023-02-02 14:27] LABS: Thyroid Stimulating Hormone 0.68 uIU/mL (0.32-4.0)
== END 2023-02-02 09:59 | disposition home or self-care (01) ==
LOC: HO.HMGCLDS 09:58
PROVIDERS: PCP Internal Medicine; Visit Provider Internal Medicine
DX: R35.0 Frequency of micturition (principal); E11.9 Type 2 diabetes mellitus without complications; E03.9 Hypothyroidism, unspecified
CPT/HCPCS: 36415; 80048; 83036; 84443; 85027

== ENCOUNTER → 2023-12-23 14:50 | Outpatient (RCR) | payer OTHER, MEDICAID, SELFPAY ==
[2020-06-15 14:43] VITALS: BP 115/66; PULSE 104; RESP 12; TEMP 36.9; O2SAT 99; BMI 25.9
[2020-06-15 16:07] LABS: Baso%MD 0.3 %; Eos%MD 0.5 %; Hematocrit 27.1 % (37-47); Hemoglobin 8.1 g/dl (12.0-16.0); IG%MD 4.3 %; Lymph%MD 9.6 %; Mean Corpuscular HGB Conc 29.9 g/dl (31.0-35.0); Mean Corpuscular Hemoglobin 24.9 pg (27.0-33.0); Mean Corpuscular Volume 83.4 fL (80-98); Mean Platelet Volume 11.2 fL (9.4-12.3); Mono%MD 5.8 %; Neut%MD 79.5 %; Platelet Count 269 X10*3/uL (160-400); Red Blood Count 3.25 X10*6/uL (4.20-5.50); Red Cell Distribution Width 15.6 % (11.0-16.0); White Blood Count 8.6 X10*3/uL (4.8-10.8)
--- NOTE | 2020-06-15 16:22 | MHC.HEMONCMA ---
33 wk gestation patient presents with severe anemia. History was reviewed and labs were drawn. Patient to follow up in a month. IVN was ordered as well and Soni Phillip, gave patient that information.
[2020-06-15 16:42] LABS: Anion Gap 14 (12-20); Carbon Dioxide 21 mmol/L (22-29); Chloride 104 mmol/L (96-108); Potassium 4.4 mmol/L (3.3-5.1); Sodium 135 mmol/L (135-145)
[2020-06-15 16:43] LABS: Alanine Aminotransferase 12 U/L (0-31); Albumin Level 3.2 g/dL (3.5-5.0); Alkaline Phosphatase 169 U/L (39-117); Aspartate Amino Transferase 21 U/L (5-31); Bilirubin Total 0.5 mg/dL (0.0-1.0); Blood Urea Nitrogen 10 mg/dL (9-16); Calcium 8.9 mg/dL (8.4-10.2); Creatinine Clr Calc Pharmacy 135.9; Estimated Glomerular Filt Rate > 60; Glucose Random 90 mg/dL (60-115); Iron 56 mcg/dL (30-160); Total Protein 6.2 g/dL (6.5-8.0)
--- NOTE | 2020-06-15 16:54 | P.CNHO_ITS ---
Subjective - Subjective Chief complaint: Consult for: Anemia. At 38 weeks of . Patient: new to practice Consult date: 06/15/20 Requesting Physician: Conchis Welch. Medical Summary: DIAGNOSIS: Iron deficiency anemia. Thirty-eight weeks of . HPI - Consult Narrative Narrative: Debbie Gan is a pleasant 25 year old lady, who is at 38 weeks of gestation with her 2nd . She has been noted to be anemic. Hemoglobin was 7.7. She was prescribed iron. However initially she did not take them. She has been taking 3 times a day over the past month. She tells me that with her 1st as well she was rather anemic. Her baby is 4 years old. She does feel rather fatigued. Review of Systems - Constitutional Reports system reviewed and no additional complaints, except as documented, Reports lack of energy, Reports malaise, Reports weakness, Reports weight gain - Eyes Reports system reviewed and no additional complaints, except as documented - ENT Reports system reviewed and no additional complaints, except as documented - Cardiovascular Reports system reviewed and no additional complaints, except as documented - Respiratory Reports no additional respiratory complaints - Gastrointestinal Reports system reviewed and no additional complaints, except as documented - Genitourinary Reports no additional female genitourinary complaints - Musculoskeletal Reports system reviewed and no additional complaints, except as documented - Integumentary/Breasts Skin/Breast: Reports no additional skin complaints - Neurologic Reports system reviewed and no additional complaints, except as documented - Psychiatric Reports system reviewed and no additional complaints, except as documented - Endocrine Reports no additional endocrine complaints - Hematologic/Lymphatic Reports system reviewed and no additional complaints, except as documented - Allergic/Immunologic Reports system reviewed and no additional complaints, except as documented Oncology Screenings - ECOG Performance Status ECOG Performance Status: 0 PMFSH Family History: Family History (Last Reviewed 06/14/20 @ 14:19 by Conchis Welch CNM) Mother Hx pulmonary embolism History of fibromyalgia Maternal Grandmother Hx of deep venous thrombosis Social History: Social History (Last Updated 06/15/20 @ 14:48 by Alaina Hayden) Alcohol History: Alcohol intake: former Substance Use History: Substance Use Type: Marijuana Sex/Gender Assessment: Sexual orientation: Straight/Heterosexual Gender identity: female Home Medications and Allergies Allergies Allergy/AdvReac Type Severity Reaction Status Date / Time No Known Allergies Allergy Verified 06/14/20 13:49 [No Known Allergies*] Physical Exam Vital signs: Vital Signs Temp 98.4 F 06/15/20 14:43 Pulse 104 H 06/15/20 14:43 Resp 12 06/15/20 14:43 BP 115/66 06/15/20 14:43 Pulse Ox 99 06/15/20 14:43 Intake & Output 06/14/20 06/15/20 06/15/20 18:59 06:59 18:59 Other: Weight 66.6 kg Weight in Grams 40747 Weight 66.6 kg - Constitutional Present: no acute distress - Routine HEENT Exam Head: Present: normal inspection ENT: Present: mucous membranes moist - Routine Neck Exam Present: supple - Routine Respiratory Exam Present: CTAB - Routine Cardiovascular Exam Cardiovascular: Present: RRR, S1, S2 - Routine Abdominal Exam Present: normal bowel sounds, nontender - Routine Extremities Exam Present: nontender - Routine Skin Exam Present: intact - Routine Neurological Exam Present: alert, oriented X3 - Detailed Neurological Exam: Coma Scale Eye Opening: Spontaneous (4) Verbal Response: Oriented (5) Motor Response: Obeys commands (6) [place] Coma Scale Total: 15 - Routine Psychiatric Exam Present: normal affect Hem/Onc Consult Result - Labs CBC & Chem 7: 06/15/20 13:30 06/15/20 13:30 Labs: Short CBC 06/15/20 Range/Units 13:30 WBC 8.6 (4.8-10.8) X10*3/uL Hgb 8.1 L (12.0-16.0) g/dl Hct 27.1 L (37-47) % Plt Count 269 (160-400) X10*3/uL BMP 06/15/20 13:30 Sodium 135 Potassium 4.4 Chloride 104 Carbon Dioxide 21 L BUN 10 Creatinine 0.59 Calcium 8.9 Liver Function 06/15/20 Range/Units 13:30 Total Bilirubin 0.5 (0.0-1.0) mg/dL AST 21 (5-31) U/L ALT 12 (0-31) U/L Alkaline Phosphatase 169 H (39-117) U/L Albumin 3.2 L (3.5-5.0) g/dL Assessment and Plan (1) Iron deficiency anemia Status: Acute This is a pleasant 25-year-old lady at 38 weeks of gestation. She has been noted to be anemic. Hemoglobin was 7.7 gms. She has been taking oral iron over the past month. Her hemoglobin has improved to 8.1. Iron studies: 56/766/10/30. B12 146, Folate 12.4. She is close to her delivery date. I will proceed with IV iron. I will use injectofer, since that is considered it is safe during the 3rd trimester and should have a quick response. PLAN: She will receive her 1st toward its of injectofer on Thursday. Second dose will be 1 week later. Will give parenteral B12. Alongwith po folate. She will return in a month for a follow-up visit. I wish her the best of luck with her delivery. She will be going to [facility]. Thank you, CC: Conchis Johnson.
[2020-06-15 17:03] LABS: Ferritin 6 ng/mL (10-122)
[2020-06-15 17:04] LABS: Band Neutrophils Percent 2 % (3-5); Eosinophils Absolute Manual 0.2 X10*3/UL (0.0-0.8); Eosinophils Percent Manual 2 % (0-4); Lymphocytes Absolute Manual 0.6 X10*3/uL (0.6-4.8); Lymphocytes Percent Manual 7 % (20-40); Metamyelocytes Absolute 0.1 X10*3/uL; Metamyelocytes Percent 1 %; Monocytes Absolute Manual 0.5 X10*3/uL (0.0-1.2); Monocytes Percent Manual 6 % (2-11); Neutrophils Absolute Manual 7.2 X10*3/uL (2.2-7.9); Neutrophils Percent Manual 82 % (45-73); Percent Iron Saturation 7 % (15-50); Total Iron Binding Capacity 766 mcg/dL (228-428); Unsaturated Iron Binding 710 ug/dL
[2020-06-15 17:07] LABS: Platelet Estimate NORMAL (NORMAL); Polychromasia 1+; RBC Morphology NOTED
[2020-06-15 17:08] LABS: Large Platelet PRESENT; Platelet Morphology Comment NOTED
[2020-06-15 17:18] LABS: Folate 12.4 ng/mL (> or = 4.0); Vitamin B12 < 146 pg/mL (200-900)
--- NOTE | 2020-06-19 08:45 | MHC.HEMONCMA ---
Dr Merritt would like for patient to have a B12 injection, I called Iveth to see if this could be added on for today's iron infusion and she said yes. Dr Merritt wrote the order and the order was faxed.
--- NOTE | 2020-06-20 09:54 | MHC.HEMONCMA ---
Iveth called to let me know that the patient has been rescheduled to 06/25/2020 at 8am.
== END | disposition home or self-care (01) ==
LOC: HO.ONC 06-15 14:19
PROVIDERS: Referring Provider Advanced Practice Midwife; Visit Provider Internal Medicine Medical Oncology
DX: O99.013 Anemia complicating pregnancy, third trimester (principal); D50.9 Iron deficiency anemia, unspecified; Z3A.38 38 weeks gestation of pregnancy; Z79.899 Other long term (current) drug therapy
CPT/HCPCS: 36415; 80053; 82607; 82728; 82746; 83540; 85007; 85027

== ENCOUNTER 2024-04-06 08:38 | Outpatient (REF) | payer MEDICAID, SELFPAY ==
[2024-04-07 09:19] LABS: Bacterial Vaginosis PCR NEGATIVE (Negative); Candida Group PCR DETECTED (Not Detect); Candida glab krusei PCR NOT DETECTED (Not Detect); Trichomonas vaginalis PCR NOT DETECTED (Not Detect)
== END 2024-04-06 08:39 | disposition home or self-care (01) ==
LOC: HO.LAB 08:38
PROVIDERS: Visit Provider Internal Medicine
DX: N89.8 Other specified noninflammatory disorders of vagina (principal)
CPT/HCPCS: 0352U; 99212

== ENCOUNTER 2024-04-06 08:38 | Outpatient (AMB) | payer MEDICAID, SELFPAY ==
[2024-04-06 09:08] VITALS: BP 112/74; PULSE 84; O2SAT 99; BMI 23.8
--- NOTE | 2024-04-06 09:08 | AM.OFFWIN_ITS ---
Intake Vital Signs 04/06/24 09:08 Height 5 ft 3 in Weight 134 lb 2 oz BMI 23.8 BP 112/74 Blood Pressure Location Rt brachial Position Sitting Pulse 84 Pulse Source Pulse Oximeter Pulse Oximetry (%) 99 Oxygen Delivery Method Room Air Intake Visit Reasons: EP Symptoms of BV Patient Tobacco Use Status: Never used Tobacco Allergies No Known Allergies [No Known Allergies*] Allergy (Verified 04/06/24 09:11) Medication List - Last Reconciled 04/06/24 by Jai Renee MD No Known Home Meds Do you need a note to return to daycare/school/sports/work: No HPI EP Symptoms of BV HPI Details Chief Complaint The patient presents with irregular vaginal discharge and itching after engaging in consecutive sexual activity sessions. History of Present Illness The patient is a 28-year-old female presenting with irregular vaginal discharge and itching. The symptoms began three days ago, coinciding with engaging in consecutive sexual activities without the use of condoms or lubricants. She has not experienced these symptoms previously and is aware of changes in her discharge patterns. She reports no fever, chills, or pelvic pain associated with the symptoms. There is no history of similar problems in the past, and the patient perceives this as a new issue. She wishes to rule out any infections that may be causing these symptoms. Plan Irregular Vaginal Discharge and Itching: A vaginal culture will be obtained to assess for possible yeast infection, bacterial overgrowth, or trichomoniasis. The patient will self-administer the sample collection, which will then be sent to the laboratory for analysis. Awaiting laboratory results will dictate subsequent treatment. PFSH Medical History Anemia Surgical History H/O bilateral salpingectomy Family History Mother Hx pulmonary embolism History of fibromyalgia Maternal Grandmother Hx of deep venous thrombosis Social History Housing: Apartment Alcohol intake: current Alcohol intake frequency: holidays/special occasions only Patient Tobacco Use Status: Never used Tobacco Second Hand Smoke Exposure: Yes Substance Use Type: Marijuana service: No Current occupational status: employed Sexual orientation: Straight/Heterosexual Gender identity: Female Female Reproductive History Menstrual Age of Menarche: 14 Review of Systems Const All systems reviewed & are unremarkable except as noted in HPI and below Physical Exam Vital Signs: Last Vital Signs Pulse 84 04/06/24 09:08 BP 112/74 04/06/24 09:08 Pulse Ox 99 04/06/24 09:08 Oxygen Delivery Method Room Air 04/06/24 09:08 BMI result Body Mass Index 23.8 Const General: no acute distress Orientation/consciousness: patient oriented x3 Eyes General: appearance normal, both eyes and all related structures Resp Effort & Inspection: normal respiratory effort and able to speak in complete sentences Neuro General: patient oriented x3 Psych Mental Status: mental status grossly normal Assessment & Plan Assessment & Plan (1) Vaginal discharge: Code(s): N89.8 - Other specified noninflammatory disorders of vagina Plan Chief Complaint The patient presents with irregular vaginal discharge and itching after engaging in consecutive sexual activity sessions. History of Present Illness The patient is a 28-year-old female presenting with irregular vaginal discharge and itching. The symptoms began three days ago, coinciding with engaging in consecutive sexual activities without the use of condoms or lubricants. She has not experienced these symptoms previously and is aware of changes in her discharge patterns. She reports no fever, chills, or pelvic pain associated with the symptoms. There is no history of similar problems in the past, and the patient perceives this as a new issue. She wishes to rule out any infections th at may be causing these symptoms. Plan Irregular Vaginal Discharge and Itching: A vaginal culture will be obtained to assess for possible yeast infection, bacterial overgrowth, or trichomoniasis. Th e patient will self-administer the sample collection, which will then be sent to the laboratory for analysis. Awaiting laboratory results will dictate subsequent treatment. Orders: Orders Bacterial Vaginosis Panel Today N89.8 - Other specified noninflammatory disorders of vagina Coding Level of Care Code Est Pt Level 3 (30386) Diagnoses Vaginal discharge N89.8
== END 2024-04-06 10:36 | disposition home or self-care (01) ==
PROVIDERS: Visit Provider Internal Medicine
DX: N89.8 Other specified noninflammatory disorders of vagina (principal)

== ENCOUNTER 2024-04-22 00:07 | Emergency (ER) | payer MEDICAID, SELFPAY ==
[2024-04-22 00:20] VITALS: BP 115/64; PULSE 79; RESP 18; TEMP 36.7; O2SAT 97; BMI 23.7
[2024-04-22] MEDS: Ibuprofen 600 MG TABLET PO (00:41)
[2024-04-22 01:42] LABS: Influenza A PCR NEGATIVE (Negative); Influenza B PCR NEGATIVE (Negative); Resp Syncy Virus RNA Qual PCR NEGATIVE (Negative); SARS COV2 PCR INHOUSE NEGATIVE (Negative)
--- NOTE | 2024-04-22 04:32 | ED_ITS ---
HPI - General Adult General Chief complaint: General Medical Stated complaint: sinus infection? Time Seen by Provider: 04/22/24 04:22 Source: patient Mode of arrival: ambulatory Limitations: no limitations History of Present Illness ED Provider: DR. Clayton HPI narrative: 28-year-old female came in for evaluation of left facial pain pressure, sneezing, coughing, sore throat, left ear pain. No fever, no chills. No sick contacts. Related Data Previous Rx's ?Medication ?Instructions ?Recorded fluconazole 150 mg tablet 150 mg PO Q3D 2 doses #2 tabs 04/07/24 amoxicillin 500 mg-potassium 1 tab PO BID #14 tabs 04/22/24 clavulanate 125 mg tablet (Augmentin) Allergies Allergy/AdvReac Type Severity Reaction Status Date / Time No Known Allergies Allergy Verified 04/22/24 00:34 [No Known Allergies*] Review of Systems Review of Systems: All other systems are reviewed and are negative Constitutional: Reports as per HPI and Reports no additional constitutional complaints Eyes: Reports as per HPI and Reports no additional eye complaints Reports system reviewed and no additional complaints, except as documented Cardiovascular: Reports as per HPI and Reports no additional cardiovascular complaints Respiratory: Reports as per HPI and Reports no additional respiratory complaints Gastrointestinal: Reports as per HPI and Reports no additional gastrointestinal complaints Genitourinary: Reports no additional female genitourinary complaints Musculoskeletal: Reports no additional musculoskeletal complaints Skin/Breast: Reports system reviewed and no additional complaints, except as docu Psychiatric: Reports no additional psychiatric complaints Endocrine: Reports no additional endocrine complaints Hematologic/Lymphatic: Reports no additional hematologic/lymphatic complaints Allergic/Immunologic: Reports no additional allergic/immunologic complaints Reports system reviewed and no additional complaints, except as documented and Reports Abnormal speech present [facility] Past Medical History Medical History Anemia Surgical History H/O bilateral salpingectomy Family History Family History Mother Hx pulmonary embolism History of fibromyalgia Maternal Grandmother Hx of deep venous thrombosis Social History Social History Housing: Apartment Alcohol intake: current Alcohol intake frequency: holidays/special occasions only Patient Tobacco Use Status: Never used Tobacco Second Hand Smoke Exposure: Yes Substance Use Type: Marijuana Advance Directives: No Do you have a plan to hurt others: No Plan service: No Current occupational status: employed Sexual orientation: Straight/Heterosexual Gender identity: Female Physical Exam ED Vital Signs: Vital Signs - 24 hr 04/22/24 00:20 Temperature 98.0 F Pulse Rate 79 Respiratory Rate 18 Blood Pressure 115/64 Pulse Oximetry 97 Oxygen Delivery Method Room Air BMI result Body Mass Index 23.7 Vital signs have been reviewed and appear to be correct. Blood pressure elevated. Heart rate normal. Respiratory rate normal. Temperature normal. Oxygen saturation normal. Appearance: Alert. Oriented X3. No acute distress. Head: Normal external exam. Normocephalic. Atraumatic. No [place] signs noted. No raccoon eyes noted, tender left frontal/maxillary sinus on percussion. Eyes: PERRLA. EOMI. Conjunctiva and sclera normal. Eyelids normal. ENT: Left TM erythema, Pharynx normal. Uvula midline. Moist mucous membranes. No trismus noted. No drooling noted. No muffled voice noted. Neck: Normal inspection. Neck supple. FROM. No adenopathy. Thyroid Normal. No meningeal signs. No neck mass noted. CVS: Normal heart rate and rhythm. Heart sound normal. No murmurs noted. Pulses normal throughout. Respiratory: No respiratory distress. Painless inspiration. Breath sounds normal. No wheezes/rales/rhonchi noted. Chest nontender. No accessory muscle usage noted or decreased air movement noted. Abdomen: Soft and nontender. Bowel sounds normal in all 4 quadrants. No distention noted. No organomegaly noted. No visible injury noted. Back: No CVA tenderness. Full range of motion noted. Skin: Skin warm and dry. Normal skin color. Normal skin turgor. No rashes/lesions/lacerations noted. Extremities: No lower extremity edema. Extremities exhibit normal range of motion. Extremities nontender. Neuro: Oriented X 3. Cranial nerve exam: II-XII are grossly intact No motor deficit. No sensory deficit. Reflexes normal. Course Reevaluation(s) Reevaluation #1: Acute sinusitis; start on Augmentin Time: 04:34 Medications Administered Discontinued Medications Generic Name Dose Route Start Last Admin Trade Name Freq PRN Reason Stop Dose Admin Ibuprofen 600 mg 04/22/24 00:39 04/22/24 00:41 Ibuprofen 600 Mg Tablet PO 04/22/24 00:40 600 mg ONCE ONE Administration Medical Decision Making Differential Diagnosis Differential Diagnoses: The differential diagnosis associated with the presentation includes (Acute sinusitis, upper respiratory infection, viral syndrome, otitis media.) Admission/Observation Consideration of admission/observation: Escalation of care including admission/observation considered Lab Data MDM Lab Attestation statement: I reviewed the patient's lab results. Labs: Lab Results 04/22/24 Range/Units 01:01 Influenza Type A (PCR) NEGATIVE (Negative) Influenza Type B (PCR) NEGATIVE (Negative) RSV RNA Qual (PCR) NEGATIVE (Negative) SARS-CoV-2 RNA (RT-PCR) NEGATIVE (Negative) Discharge Plan Discharge Clinical Impression: Acute frontal sinusitis Patient Disposition: Home, Self-Care Instructions: Sinusitis (ED) Prescriptions: New amoxicillin-pot clavulanate [Augmentin] 500-125 mg tablet 1 tab PO BID Qty: 14 0RF No Action fluconazole 150 mg tablet 150 mg PO Q3D 0 Days Qty: 2 0RF Rx Instructions: may repeat second dose 72 hrs after first dose if symptoms persist Print Language: Albanian
[2024-04-22 04:41] VITALS: BP 121/55; PULSE 71; RESP 14; TEMP 36.9; O2SAT 100
[2024-04-22] MEDS: Amoxicillin/Potassium Clav 500 MG TABLET PO (04:43)
[2024-04-22 04:51] VITALS: BP 121/55; PULSE 71; RESP 14; TEMP 36.9; O2SAT 100
== END 2024-04-22 04:54 | disposition home or self-care (01) ==
PROVIDERS: Emergency Provider Emergency Medicine
DX: J01.10 Acute frontal sinusitis, unspecified (principal); R05.9 Cough, unspecified; J02.9 Acute pharyngitis, unspecified; Z03.818 Encounter for observation for suspected exposure to other biological agents ruled out
CPT/HCPCS: 0241U; 99283; 99284

== ENCOUNTER 2024-05-12 08:31 | Outpatient (AMB) | payer MEDICAID, SELFPAY ==
--- NOTE | 2024-05-12 08:36 | AM.OFFWIN_ITS ---
Intake Vital Signs 05/12/24 08:37 Height 5 ft 3 in Weight 135 lb BMI 23.9 BP 90/66 Blood Pressure Location Lt brachial Position Sitting Pulse 72 Pulse Source Pulse Oximeter Pulse Oximetry (%) 97 Oxygen Delivery Method Room Air Intake Visit Reasons: EP ?allergic reaction to med taking Intake Note: Pt is here today for a walk in visit. Pt states that she went to Er for sinus infection and she was on Augumentin and now she has yeast infection but she is on her period now. Patient Tobacco Use Status: Never used Tobacco Allergies No Known Allergies [No Known Allergies*] Allergy (Verified 05/12/24 08:40) Do you need a note to return to daycare/school/sports/work: No HPI HPI Comments History of Present Illness Details 29 y/o female patient who presents to [facility] walk in clinic with c/o yeast infection in her vagina. Reports recent Abx use. Reports vaginal itching and discomfort. She is currently on her period. PFSH Medical History Anemia Surgical History H/O bilateral salpingectomy Family History Mother Hx pulmonary embolism History of fibromyalgia Maternal Grandmother Hx of deep venous thrombosis Social History Housing: Apartment Alcohol intake: current Alcohol intake frequency: does not drink Patient Tobacco Use Status: Never used Tobacco Second Hand Smoke Exposure: Yes Substance Use Type: Marijuana service: No Current occupational status: employed Sexual orientation: Straight/Heterosexual Gender identity: Female Female Reproductive History Menstrual Age of Menarche: 14 Review of Systems Const All systems reviewed & are unremarkable except as noted in HPI and below Physical Exam Vital Signs: Last Vital Signs Pulse 72 05/12/24 08:37 BP 90/66 05/12/24 08:37 Pulse Ox 97 05/12/24 08:37 Oxygen Delivery Method Room Air 05/12/24 08:37 BMI result Body Mass Index 23.9 Const General: cooperative and no acute distress Orientation/consciousness: patient oriented x3 General: Yes no CVA tenderness and Yes deferred Back/Spine/Pelvis Back: no CVA tenderness Neuro General: patient oriented x3, gait normal and moves all extremities Psych Speech and movement: Normal speech and movement present Assessment & Plan Assessment & Plan (1) Vaginitis: Code(s): N76.0 - Acute vaginitis Qualifiers: Chronicity: acute Qualified Code(s): N76.0 - Acute vaginitis Plan: Currently on her period. Pt will wait to see if symptoms will go away after period. She just completed Fluconazole dose ~ a week ago. RTC Thursday if not better. Coding Level of Care Code Est Pt Level 3 (31619) Diagnoses Acute vaginitis N76.0 Chronicity: acute Time Spent (min) 15
[2024-05-12 08:37] VITALS: BP 90/66; PULSE 72; O2SAT 97; BMI 23.9
== END 2024-05-12 09:02 | disposition home or self-care (01) ==
PROVIDERS: Visit Provider Nurse Practitioner Family
DX: N76.0 Acute vaginitis (principal)

== ENCOUNTER → 2024-05-12 08:31 | Outpatient (BNVA) | payer MEDICAID, SELFPAY | PROVIDERS: Visit Provider Nurse Practitioner Family | DX: N76.0 Acute vaginitis (principal) | CPT/HCPCS: 99212 ==

== ENCOUNTER 2024-05-17 08:40 | Outpatient (AMB) | payer MEDICAID, SELFPAY ==
[2024-05-17 08:41] VITALS: BP 110/70; PULSE 80; O2SAT 98; BMI 24.1
--- NOTE | 2024-05-17 08:41 | MHC.OFFWIV ---
Intake Vital Signs 05/17/24 08:41 Height 5 ft 3 in Weight 136 lb 2 oz BMI 24.1 BP 110/70 Blood Pressure Location Rt brachial Position Sitting Pulse 80 Pulse Source Pulse Oximeter Pulse Oximetry (%) 98 Oxygen Delivery Method Room Air Intake Visit Reasons: EP ?Yeast infection Intake Note: Pt presents to the office today for c/o a yeast infection. Pt states she came to the walk in on 05/12/24 with the same symptoms but she had her period so she wasn't able to do the swab so she is back today to do the swab. Patient Tobacco Use Status: Never used Tobacco Allergies No Known Allergies [No Known Allergies*] Allergy (Verified 05/17/24 08:44) HPI HPI Comments History of Present Illness Details History of Present Illness - The patient is a 29-year-old female presenting with symptoms suggestive of a possible vaginal infection. - Symptoms include internal itchiness beginning 5 days ago, synchronously with menstrual onset but no external rash or redness. - Discharge described as milky, with no fishy odor or chunkiness. - No prior diagnostic swabbing, and no urinary symptoms such as burning or increased frequency, low back pain, nor any systemic symptoms like fever were reported. Physical Exam General: Cooperative, healthy appearing, comfortable, no acute distress and well developed Orientation: Patient oriented x3 Limitations: No limitations Head: Normal to inspection Ears: Hearing grossly normal bilaterally Nose: Normal External nose present Face and sinus: Normal facial exam Eyes: Appearance normal, both eyes and all related structures Neck: Normal visual inspection and Yes full ROM Respiratory: Normal respiratory effort and able to speak in complete sentences. Skin: No rashes or lesions noted Neuro: Patient oriented x3 Extremities: Normal to inspection [facility] Medical History Anemia Surgical History H/O bilateral salpingectomy Family History Mother Hx pulmonary embolism History of fibromyalgia Maternal Grandmother Hx of deep venous thrombosis Social History Housing: Apartment Alcohol intake: current Alcohol intake frequency: does not drink Patient Tobacco Use Status: Never used Tobacco Second Hand Smoke Exposure: Yes Substance Use Type: Marijuana service: No Current occupational status: employed Sexual orientation: Straight/Heterosexual Gender identity: Female Female Reproductive History Menstrual Age of Menarche: 14 Review of Systems Const All systems reviewed & are unremarkable except as noted in HPI and below Physical Exam Vital Signs: Last Vital Signs Pulse 80 05/17/24 08:41 BP 110/70 05/17/24 08:41 Pulse Ox 98 05/17/24 08:41 Oxygen Delivery Method Room Air 05/17/24 08:41 BMI result Body Mass Index 24.1 Assessment & Plan Assessment & Plan (1) Vaginitis: Code(s): N76.0 - Acute vaginitis Qualifiers: Chronicity: acute Qualified Code(s): N76.0 - Acute vaginitis Plan: Patinet self swabbed. Sent Addy Vag panel, will treat based on results. Coding Level of Care Code New Pt Level 3 (22866) Diagnoses Acute vaginitis N76.0 Chronicity: acute
== END 2024-05-17 09:25 | disposition home or self-care (01) ==
PROVIDERS: Visit Provider Physician Assistant
DX: N76.0 Acute vaginitis (principal)

== ENCOUNTER 2024-05-17 08:40 | Outpatient (REF) | payer MEDICAID, SELFPAY ==
[2024-05-17 14:47] LABS: Bacterial Vaginosis PCR NEGATIVE (Negative); Candida Group PCR NOT DETECTED (Not Detect); Candida glab krusei PCR NOT DETECTED (Not Detect); Trichomonas vaginalis PCR NOT DETECTED (Not Detect)
== END 2024-05-17 08:41 | disposition home or self-care (01) ==
LOC: HO.LAB 08:40
PROVIDERS: Visit Provider Physician Assistant
DX: N76.0 Acute vaginitis (principal)
CPT/HCPCS: 81515; 99202

== ENCOUNTER 2024-06-27 08:21 | Outpatient (AMB) | payer OTHER, SELFPAY ==
--- NOTE | 2024-06-27 08:35 | AM.OFFWIN_ITS ---
Intake Vital Signs 06/27/24 08:41 Weight 136 lb BP 120/80 Blood Pressure Location Lt brachial Position Sitting Pulse 78 Pulse Source Pulse Oximeter Pulse Oximetry (%) 96 Oxygen Delivery Method Room Air Intake Visit Reasons: EP-UTI Intake Note: Patient here for burning on urination and itching around the vaginal area that started yesterday. Patient Tobacco Use Status: Never used Tobacco Allergies No Known Allergies [No Known Allergies*] Allergy (Verified 06/27/24 08:40) Do you need a note to return to daycare/school/sports/work: No HPI HPI Comments History of Present Illness Details 29 y/o female patient who presents to [facility] walk in clinic with c/o Dysuria and vaginal itching since yesterday. PFSH Medical History Anemia Surgical History H/O bilateral salpingectomy Family History Mother Hx pulmonary embolism History of fibromyalgia Maternal Grandmother Hx of deep venous thrombosis Social History Housing: Apartment Alcohol intake: current Alcohol intake frequency: does not drink Patient Tobacco Use Status: Never used Tobacco Second Hand Smoke Exposure: Yes Substance Use Type: Marijuana service: No Current occupational status: employed Sexual orientation: Straight/Heterosexual Gender identity: Female Female Reproductive History Menstrual Age of Menarche: 14 Review of Systems Const All systems reviewed & are unremarkable except as noted in HPI and below Physical Exam Vital Signs: Last Vital Signs Pulse 78 06/27/24 08:41 BP 120/80 06/27/24 08:41 Pulse Ox 96 06/27/24 08:41 Oxygen Delivery Method Room Air 06/27/24 08:41 Const General: cooperative and no acute distress Orientation/consciousness: patient oriented x3 General: Yes no CVA tenderness and Yes deferred Back/Spine/Pelvis Back: no CVA tenderness Neuro General: patient oriented x3, gait normal and moves all extremities Psych Speech and movement: Normal speech and movement present Assessment & Plan Assessment & Plan (1) Dysuria: Code(s): R30.0 - Dysuria Plan: Ordered Urinalysis and C&S (2) Vaginitis: Code(s): N76.0 - Acute vaginitis Qualifiers: Chronicity: acute Qualified Code(s): N76.0 - Acute vaginitis Plan: Ordered Fluconazole Orders: Orders UA CC w/rflx Micro + Cult Today R30.0 - Dysuria Medications: New fluconazole TAKE DIRECTED. 150 mg PO DAILY 5 tabs 0RF N76.0 - Acute vaginitis Coding Level of Care Code Est Pt Level 4 (55648) Diagnoses Dysuria R30.0 Acute vaginitis N76.0 Chronicity: acute Time Spent (min) 20
[2024-06-27 08:41] VITALS: BP 120/80; PULSE 78; O2SAT 96
== END 2024-06-27 09:37 | disposition home or self-care (01) ==
PROVIDERS: Visit Provider Nurse Practitioner Family
DX: R30.0 Dysuria (principal); N76.0 Acute vaginitis; Z13.9 Encounter for screening, unspecified

== ENCOUNTER 2024-06-27 08:21 | Outpatient (REF) | payer OTHER, SELFPAY | END 2024-06-27 08:22 | disposition home or self-care (01) | LOC: HO.LAB 08:21 | PROVIDERS: Visit Provider Nurse Practitioner Family | DX: R30.0 Dysuria (principal); N76.0 Acute vaginitis | CPT/HCPCS: 81003; 87086; 87147; 99212 ==

== ENCOUNTER 2024-09-23 10:08 | Outpatient (AMB) | payer OTHER, SELFPAY ==
[2024-09-23 10:10] VITALS: BP 118/80; PULSE 96; TEMP 37.1; O2SAT 99; BMI 23.6
--- NOTE | 2024-09-23 10:10 | AM.OFFWIN_ITS ---
Intake Vital Signs 09/23/24 10:10 Height 5 ft 3 in Weight 133 lb 2 oz BMI 23.6 BP 118/80 Blood Pressure Location Lt brachial Position Sitting Pulse 96 Pulse Source Pulse Oximeter Temp 98.8 F Temp Source Oral Pulse Oximetry (%) 99 Oxygen Delivery Method Room Air Intake Visit Reasons: EP swollen lymph nodes Intake Note: Pt presents to the office today for c/o swollen lymph nodes in her neck, headache,neck pain, and weak/restless legs x1 day. Pt states she took a covid test yesterday and the result was negative. Patient Tobacco Use Status: Never used Tobacco Allergies No Known Allergies [No Known Allergies*] Allergy (Verified 09/23/24 10:16) HPI HPI Comments History of Present Illness Details History - The patient is a 29-year-old female pr esenting with acute cervicogenic headache and neck pain. - Symptoms commenced yesterday, marked b y a pounding headache and swelling in the right ear, along with pronounced neck pain. - States she has tenderness of her lymph nodes in her neck but they don't feel lumpy - There are no associated systemic sympt oms like fever or night sweats, and ear, sinus, or respiratory complaints are denied. - The patient has experienced recent diz zy spells due to reduced appetite,from headache discomfort. - A history of seasonal allergies is not ed, does not take a daily allergy pill - Additionally, she reports underlying r ight and left upper shoulder pain into her neck, used a heating pad yest with no relief. Physical Exam General: Cooperative, healthy appearing, comfortable and no acute distress Orientation/consciousness: Patient oriented x3 Limitations: No limitations Head: Normal to inspection, no trauma Ears: Right ear swollen, hearing grossly normal bilaterally, external ears normal and TM's normal bilaterally Nose: Normal external nose present, Normal nares present and No nasal discharge present Face and sinus: Normal facial exam and Yes sinuses nontender Mouth: Normal oral and palatal mucosa present and moist mucous membranes Throat: Yes tonsils normal, Yes uvula midline. Posterior oropharynx erythema, cobblestoning observed Eyes: Appearance normal, both eyes and all related structures Neck: bilateral tonsilar lymph node ttp, paraspinous muscle spasms bilaterally Respiratory: Normal respiratory effort, able to speak in complete sentences, Actively coughing, no respiratory distress, not tachypneic, no tripod positioning and no use of accessory muscles Skin: No rashes or lesions noted Spine: no TTP cervical spine Neuro: Patient oriented x3 Extremities: Normal to inspection and Yes no clubbing, cyanosis or edema PFSH Medical History Anemia Surgical History H/O bilateral salpingectomy Family History Mother Hx pulmonary embolism History of fibromyalgia Maternal Grandmother Hx of deep venous thrombosis Social History Housing: Apartment Alcohol intake: current Alcohol intake frequency: does not drink Patient Tobacco Use Status: Never used Tobacco Second Hand Smoke Exposure: Yes Substance Use Type: Marijuana service: No Current occupational status: employed Sexual orientation: Straight/Heterosexual Gender identity: Female Female Reproductive History Menstrual Age of Menarche: 14 Review of Systems Const All systems reviewed & are unremarkable except as noted in HPI and below Physical Exam Vital Signs: Last Vital Signs Temp 98.8 F 09/23/24 10:10 Pulse 107 H 09/23/24 10:10 BP 118/80 09/23/24 10:10 Pulse Ox 99 09/23/24 10:10 Oxygen Delivery Method Room Air 09/23/24 10:10 BMI result Body Mass Index 23.6 Assessment & Plan Assessment & Plan (1) Seasonal allergies: Code(s): J30.2 - Other seasonal allergic rhinitis Plan: The patient will commence a daily antihistamine such as Claritin or Xyzal, aimed at managing her allergic rhinitis and subsequent cervical lymphadenopathy. Increased water consumption is advised for symptomatic benefit. If lymph node issues persist beyond two weeks, follow-up with the primary care provider may be necessary for possible ultrasound assessment to ensure comprehensive evaluation and management of her condition. Patient was informed and verbally consented to the use of an ambient scribe for clinic note documentation during this visit (2) Cervical paraspinous muscle spasm: Code(s): M62.838 - Other muscle spasm Plan: Cyclobenzaprine, as prescribed, will target muscle tension causing her cervicogenic headaches, with considerations for sedative effects and precautions against concurrent alcohol use or operation of vehicles. Medications: New cyclobenzaprine 5 mg PO Q8H PRN 20 tabs 0RF Muscle Spasm Coding Level of Care Code New Pt Level 4 (79181) Diagnoses Seasonal allergies J30.2 Cervical paraspinous muscle spasm M62.838
== END 2024-09-23 10:39 | disposition home or self-care (01) ==
PROVIDERS: Visit Provider Physician Assistant
DX: J30.2 Other seasonal allergic rhinitis (principal); M62.838 Other muscle spasm

== ENCOUNTER → 2024-09-23 10:08 | Outpatient (BNVA) | payer OTHER, SELFPAY | PROVIDERS: Visit Provider Physician Assistant | DX: J30.2 Other seasonal allergic rhinitis (principal); M62.838 Other muscle spasm | CPT/HCPCS: 99212 ==

== ENCOUNTER 2024-11-08 12:38 | Outpatient (AMB) | payer OTHER, SELFPAY ==
[2024-11-08 12:52] VITALS: BP 90/61; PULSE 82; TEMP 36.9; O2SAT 100; BMI 23.2
--- NOTE | 2024-11-08 12:52 | MHC.OFFWIV ---
Intake Vital Signs 11/08/24 12:52 Height 5 ft 3 in Weight 131 lb BMI 23.2 BP 90/61 Blood Pressure Location Lt brachial Position Sitting Pulse 82 Pulse Source Pulse Oximeter Temp 98.5 F Temp Source Oral Pulse Oximetry (%) 100 Oxygen Delivery Method Room Air Intake Visit Reasons: EP-rt calf pain Intake Note: presents with bilateral calf pain RT > LT, tingling and twitching, gait is off for about a week. states fmhx of lupus, fibromyalgia and PE. Patient Tobacco Use Status: Never used Tobacco Allergies No Known Allergies (No Known Allergies*) Allergy (Verified 11/08/24 12:55) Do you need a note to return to daycare/school/sports/work: No HPI HPI Comments History of Present Illness Details She presents to office with leg ache She has no past medical hx; no recent appointment with PCP. April is next new PCP appointment She said worse on R side Leg discomfort since last week but has had restless leg for 2-3 months Dull ache in R leg, 6/10 that is worse with walking and driving She has not tried anything for it. Feels tingly feeling and twitching when she rests Location is R posterior calf and bottom of foot No skin color changes She denies recent travel No estrogen use No CP or SOB No hx of blood clots personally but said her mother had one Patient denies leg swelling PFSH Medical History Anemia Surgical History H/O bilateral salpingectomy Family History Mother Hx pulmonary embolism History of fibromyalgia Maternal Grandmother Hx of deep venous thrombosis Social History Housing: Apartment Alcohol intake: current Alcohol intake frequency: does not drink Patient Tobacco Use Status: Never used Tobacco Second Hand Smoke Exposure: Yes Substance Use Type: Marijuana service: No Current occupational status: employed Sexual orientation: Straight/Heterosexual Gender identity: Female Female Reproductive History Menstrual Age of Menarche: 14 Review of Systems Const Reports body aches, Denies chills, Denies fever(s) and Denies weakness Eyes Denies change in vision ENT Denies sore throat Card Denies chest pain and Denies dyspnea Resp Denies dyspnea Musc Reports myalgias, Reports arthralgias and Reports muscle cramps Skin/Breast Denies rash Neuro Denies paresthesias and Denies weakness Physical Exam Vital Signs: Last Vital Signs Temp 98.5 F 11/08/24 12:52 Pulse 82 11/08/24 12:52 BP 90/61 11/08/24 12:52 Pulse Ox 100 11/08/24 12:52 Oxygen Delivery Method Room Air 11/08/24 12:52 BMI result Body Mass Index 23.2 General: Non-toxic, NAD. Speaking full sentences. Skin: Warm dry throughout. Legs symmetrical in size and shape bilaterally without erythema or warmth. No FB or puncture noted to plantar aspect R foot. Circumfrence in legs: R/L at 10 and 20cm from tibial plateau pt measures 33 and 26 respectively. Eye: EOMI Respiratory: CTA bilaterally. No wheezes, rales or rhonchi Cardiac: RRR. No murmur. DP pulse intacr bilaterally. MSK: Full ROM extremities. + full ROM flexion/extension at knees bilaterally. Full ROM dorsal/plantar flexion bilaterally. 5/5 strength dorsal/plantar flexion great toe. + slight ttp medial aspect R calf and plantar fascia R foot. No TTP LLE Neurology: Alert. No aphasia or facial droop. Gait without abnormality Psych: Good mood and affect Assessment & Plan Assessment & Plan (1) Restless leg syndrome: Code(s): - Restless legs syndrome Plan: wells criteria -2; no concern for DVT at this time Educated on s/s to monitor for and when to seek further eval Symptoms could be secondary to restless leg syndrome Pt has not seen PCP in undocumented amount of time Will check basic labs and iron panel Unsure if due to low iron and will wait for lab results for further management All questions answered Increase fluids Pt gave verbal understanding at time of discharge and had no additional questions Orders: Orders Complete Blood Count Auto Diff Today - Restless legs syndrome IRON PROFILE Today - Restless legs syndrome Comprehensive Met. Panel Today - Restless legs syndrome Coding Level of Care Code Est Pt Level 3 (76039) Diagnoses Restless leg syndrome
== END 2024-11-08 13:51 | disposition home or self-care (01) ==
PROVIDERS: Visit Provider Physician Assistant
DX: G25.81 Restless legs syndrome (principal)

== ENCOUNTER 2024-11-08 12:38 | Outpatient (REF) | payer OTHER, SELFPAY ==
[2024-11-08 16:18] LABS: MANUAL DIFF FLAG NO
[2024-11-08 16:35] LABS: Hematocrit 36.4 % (37.0-47.0); Hemoglobin 12.2 g/dl (12.0-16.0); Imm Gran Abs Auto 0.03 X10*3/uL (0.00-0.03); Imm Gran Pct Auto 0.5 % (0.0-0.4); Lymphocytes Absolute Auto 1.3 X10*3/uL (1.2-4.9); Mean Corpuscular HGB Conc 33.5 g/dl (31.0-35.0); Mean Corpuscular Hemoglobin 30.0 pg (27.0-33.0); Mean Corpuscular Volume 89.7 fL (80.0-98.0); NRBC Abs Auto 0.000 X10*3/uL (0.0-0.012); NRBC Pct Auto 0.0 /100WBC (0.0-0.2); Platelet Count 348 X10*3/uL (160-400); Red Blood Count 4.06 X10*6/uL (4.20-5.50); White Blood Count 5.6 X10*3/uL (4.8-10.8)
[2024-11-08 16:54] LABS: Alanine Aminotransferase 15 U/L (0-31); Albumin Level 4.4 g/dL (3.5-5.0); Alkaline Phosphatase 64 U/L (39-117); Anion Gap 14 (12-20); Aspartate Amino Transferase 26 U/L (5-31); Blood Urea Nitrogen 9 mg/dL (9-16); Calcium 9.2 mg/dL (8.4-10.2); Carbon Dioxide 26 mmol/L (22-29); Chloride 106 mmol/L (96-108); Estimated Glomerular Filt Rate > 60; Iron 92 mcg/dL (30-160); Percent Iron Saturation 26 % (15-50); Potassium 3.8 mmol/L (3.3-5.1); Sodium 142 mmol/L (135-145); Total Iron Binding Capacity 357 mcg/dL (228-428); Total Protein 7.4 g/dL (6.5-8.0); Unsaturated Iron Binding 265 ug/dL
== END 2024-11-08 12:39 | disposition home or self-care (01) ==
LOC: HO.HMGCLDS 12:38
PROVIDERS: Visit Provider Physician Assistant
DX: G25.81 Restless legs syndrome (principal)
CPT/HCPCS: 36415; 80053; 83540; 85025; 99212

== ENCOUNTER 2024-12-12 09:23 | Outpatient (AMB) | payer OTHER, SELFPAY ==
[2024-12-12 10:22] VITALS: BP 104/76; PULSE 84; TEMP 36.7; O2SAT 98; BMI 23.9
--- NOTE | 2024-12-12 10:22 | AM.OFFWIN_ITS ---
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 - The shoulder pain began recently and r adiates to the hand, causing tingling and headache. - The pain is severe enough to cause dis orientation and a sensation of electric shock in the brain. - The patient has a history of leg pain, previously diagnosed as restless leg syndrome, which persists but is less severe than before. - Family history includes lupus and fibr omyalgia, raising concerns about potential hereditary conditions. - Previous blood work showed normal kidn ey, liver, and thyroid functions, but lupus-specific tests were not conducted. - She has no recent trauma or falls. - She has no back pain, CP, SOB, joint p ain, stiffness, or swelling. - Had not seen a specialist for this. - Feels like something is wrong with her . Physical Exam General: Cooperative, healthy appearing, comfortable, no acute distress and well developed Orientation: Patient disoriented at times Limitations: No limitations Head: Normal to inspection Ears: Hearing grossly normal bilaterally Nose: Normal external nose present Face and sinus: Normal facial exam Eyes: Appearance normal, both eyes and all related structures Neck: Tenderness upon palpation on the right SCM. No midline spinous processes tenderness noted. No step offs noted. Full ROM. Respiratory: Normal respiratory effort and able to speak in complete sentences. Clear to auscultation bilaterally Cardiovascular: Regular rate and rhythm. Normal S1 and S2 GI: Normal to inspection. Soft to palpation and nontender Skin: No rashes or lesions noted Neuro: Sensation is intact. Extremities: Normal to inspection. FROM of the shoulders bilaterally. Strength is 5/5 on the UE. Patient was informed and verbally consented to the use of an ambient scribe for clinic note documentation during this visit. [facility] Medical History Anemia Surgical History H/O bilateral salpingectomy Family History Mother Hx pulmonary embolism History of fibromyalgia Maternal Grandmother Hx of deep venous thrombosis Social History Housing: Apartment Alcohol intake: current Alcohol intake frequency: does not drink Patient Tobacco Use Status: Never used Tobacco Second Hand Smoke Exposure: Yes Substance Use Type: Marijuana Patient : No service: No Current occupational status: employed Sexual orientation: Straight/Heterosexual Gender identity: Female Female Reproductive History Menstrual Age of Menarche: 14 Date of last menstrual period: 12/03/24 Review of Systems Const All systems reviewed & are unremarkable except as noted in HPI and below Physical Exam Vital Signs: Last Vital Signs Temp 98.1 F 12/12/24 10:22 Pulse 84 12/12/24 10:22 BP 104/76 12/12/24 10:22 Pulse Ox 98 12/12/24 10:22 Oxygen Delivery Method Room Air 12/12/24 10:22 BMI result Body Mass Index 23.9 Assessment & Plan Assessment & Plan (1) Neck pain: Code(s): M54.2 - Cervicalgia (2) Radiculopathy affecting upper extremity: Code(s): M54.10 - Radiculopathy, site unspecified Plan Most likely strain vs fibromyalgia vs arthritis vs radiculopathy Plan - Order KELVIN and CRP tests to evaluate for autoimmune conditions such as lupus. - Refer the patient to physical therapy to address musculoskeletal pain and improve function. - Prescribe medication for pain management and send it to the pharmacy. - Advise the patient to follow up with her primary care physician for further evaluation and management. Orders: Orders PT Evaluation and Treatment Today R52 - Pain, unspecified KELVIN Reflex Titer and Pattern Today R52 - Pain, unspecified Erythrocyte Sedimentation Rate Today R52 - Pain, unspecified CRP High Sensitivity Today R52 - Pain, unspecified Medications: New naproxen 500 mg PO Q12H PRN 20 tabs 0RF pain 7 days baclofen 10 mg PO TID 21 tabs 0RF 7 days Coding Level of Care Code Est Pt Level 4 (89373) Diagnoses Neck pain M54.2 Radiculopathy affecting upper extremity M54.10
== END 2024-12-12 10:50 | disposition home or self-care (01) ==
PROVIDERS: Visit Provider Physician Assistant Medical
DX: M54.2 Cervicalgia (principal); M54.10 Radiculopathy, site unspecified

== ENCOUNTER → 2024-12-12 09:23 | Outpatient (BNVA) | payer OTHER, SELFPAY | PROVIDERS: Visit Provider Physician Assistant Medical | DX: M54.2 Cervicalgia (principal); M54.10 Radiculopathy, site unspecified | CPT/HCPCS: 99212 ==

== ENCOUNTER 2024-12-13 10:42 | Outpatient (REF) | payer OTHER, SELFPAY ==
[2024-12-16 10:54] LABS: Anti Nuclear Antibody Screen NEGATIVE (NEGATIVE)
== END 2024-12-13 10:43 | disposition home or self-care (01) ==
LOC: HO.HMGCLDS 10:42
PROVIDERS: Visit Provider Physician Assistant Medical
DX: Z01.84 Encounter for antibody response examination (principal); R52 Pain, unspecified
CPT/HCPCS: 36415; 85652; 86038; 86141

== ENCOUNTER 2025-01-01 09:41 | Emergency (ER) | payer OTHER, SELFPAY ==
--- NOTE | ~2025-01-01 | US_ITS ---
CLINICAL HISTORY: bilateral lower leg pain, swelling, concern DVT Venous duplex ultrasound bilateral lower extremity COMPARISON: None provided. FINDINGS: The visualized deep veins are fully compressible with normal Doppler color flow and spectral tracings. No popliteal cyst. IMPRESSION: 1. Negative for bilateral lower extremity deep vein thrombosis. This document has been electronically signed by: Fan Allison MD on 01/01/2025 12:59:36
[2025-01-01 09:48] VITALS: BP 128/81; PULSE 73; RESP 16; TEMP 36.9; O2SAT 98; BMI 23.6
--- NOTE | 2025-01-01 10:05 | ED_ITS ---
HPI - General Adult General Chief complaint: Neck Pain/Injury Stated complaint: Neck pain Time Seen by Provider: 01/01/25 10:05 Source: patient Mode of arrival: ambulatory Limitations: no limitations History of Present Illness ED Provider: Joana Chavez PA-C HPI narrative: Patient is a 29 year old assigned female at with a history of anemia and positive KELVIN presenting to the emergency department today with right sided shoulder pain / neck pain as well as bilateral lower leg pain (right worse than left). Patient states that she has been seeing the urgent care several times for right sided shoulder pain / radiates from the neck and they give her muscle relaxers that allow her to sleep but don't really address the pain. Patient states that she is supposed to be getting into physical therapy but has not been able to see her PCP for the referral. Patient states that her right lower leg has also been intermittently painful. Patient states that she has a familial history of clots and is concerned she has a blood clot in her leg. Patient denies any other complaints at this time. Related Data Previous Rx's ?Medication ?Instructions ?Recorded cyclobenzaprine 5 mg tablet 5 mg PO Q8H PRN Muscle Spa sm #20 09/23/24 tabs baclofen 10 mg tablet 10 mg PO TID 7 days #21 tabs 12/12/24 naproxen 500 mg tablet 500 mg PO Q12H PRN pain 7 da ys #20 12/12/24 tabs prednisone 20 mg tablet 20 mg PO DAILY 7 days #7 tab s 01/01/25 Allergies Allergy/AdvReac Type Severity Reaction Status Date / Time No Known Allergies (No Known Allergy Verified 01/01/25 09:51 Allergies*) Review of Systems 2 Constitutional: Constitutional: Reports as per HPI Eyes: Eyes: Reports as per HPI ENT: Reports as per HPI Cardiovascular: Cardiovascular: Reports as per HPI Respiratory: Respiratory: Reports as per HPI Gastrointestinal: Gastrointestinal: Reports as per HPI Genitourinary: Genitourinary: Reports as per HPI Musculoskeletal: Musculoskeletal: Reports as per HPI Integumentary/Breasts: Skin/Breast: Reports as per HPI Neurologic: Reports as per HPI Psychiatric: Psychiatric: Reports as per HPI Endocrine: Endocrine: Reports as per HPI Hematologic/Lymphatic: Hematologic/Lymphatic: Reports as per HPI Allergic/Immunologic: Allergic/Immunologic: Reports as per HPI [facility] Past Medical History Attestation statement: The following information was validated with the patient. Source: old records reviewed and nursing notes reviewed Medical History Anemia Surgical History H/O bilateral salpingectomy Family History Family History Mother Hx pulmonary embolism History of fibromyalgia Maternal Grandmother Hx of deep venous thrombosis Social History Social History Housing: Apartment Alcohol intake: current Alcohol intake frequency: does not drink Patient Tobacco Use Status: Never used Tobacco Second Hand Smoke Exposure: Yes Substance Use Type: Marijuana Advance Directives: No Advance Directives Information Provided: Yes Do you have a plan to hurt others: No Plan service: No Current occupational status: employed Sexual orientation: Straight/Heterosexual Gender identity: Female Physical Exam ED Vital Signs: Vital Signs - 24 hr 01/01/25 09:48 01/01/25 13:35 Temperature 98.5 F 98.5 F Pulse Rate 73 73 Respiratory Rate 16 16 Blood Pressure 128/81 128/81 Pulse Oximetry 98 98 Oxygen Delivery Method Room Air Room Air BMI result Body Mass Index 23.6 Const General: cooperative, no acute distress, alert and awake Nutritional Appearance: well nourished Orientation/consciousness: patient oriented x3 HENMT Head: Yes normal to inspection and Yes atraumatic Ears: hearing grossly normal bilaterally and external ears normal General nose exam: Normal external nose present, no nasal discharge noted and no epistaxis Face and sinus: Yes normal facial exam, No abrasion and No laceration Mouth: Normal oral and palatal mucosa present, no drooling and no muffled voice Eyes General: appearance normal, both eyes and all related structures Periorbital: periorbital findings normal Eyelids: Yes eyelids normal Conjunctivae: conjunctivae normal Pupils: Equal, round and reactive pupils present EOM: EOMs intact bilaterally Neck Neck: Yes normal visual inspection and Yes full ROM Resp Effort & Inspection: normal respiratory effort and able to speak in complete sentences Neuro General: patient oriented x3, moves all extremities and CN's II-XI intact bilaterally Cranial nerves: Yes Equal, round and reactive pupils present Cognition (Neuro): normal cognition Extrem General: Yes normal to inspection, Yes full ROM and Yes capillary refill normal Psych Appearance: grossly normal Mental Status: mental status grossly normal Affect: normal affect Attitude: cooperative Thought process: Normal thought process present Thought content: Normal thought content present Insight: Good insight present (Psych) Medications Administered Discontinued Medications Generic Name Dose Route Start Last Admin Trade Name Bia PRN Reason Stop Dose Admin Methylprednisolone Sodium Succinate 60 mg 01/01/25 10:41 01/01/25 10:47 Methylprednisolone Sod Succ 125 Mg/2 Ml Vial IM 01/01/25 10:42 60 mg ONCE ONE Administration Medical Decision Making Medical Decision Making [facility] Narrative: Patient is a 29 year old assigned female at with a history of anemia and positive KELVIN presenting to the emergency department today with right sided shoulder pain / neck pain as well as bilateral lower leg pain (right worse than left). Patient's physical exam was unremarkable. Patient's blood work was unremarkable. Patient's lower leg US showed no acute process. I explained my physical exam findings as well as all test results to the patient. I answered all questions asked by the patient. I stressed the importance of the patient taking her medication as directed (either prescribed or as the over the counter packaging recommends). I stressed the importance of the patient following up with her primary care provider. I stressed the importance of the patient returning to the emergency department immediately if her symptoms were to worsen or if she were to develop any dizziness, shortness of breath, difficulty breathing, chest pain, blurry vision, loss of vision, nausea, vomiting, abdominal pain, fever, chills, back pain, or any other complaints. Patient verbalized agreement and understanding with this treatment plan and discharge. Differential Diagnosis Differential Diagnoses: The differential diagnosis associated with the presentation includes Cervical radiculopathy Leg pain DVT Admission/Observation Consideration of admission/observation: Escalation of care including admission/observation considered Patient would have been admitted to the hospital had her work up had any findings where hospital admission was appropriate and her clinical presentation warranted hospital admission. Lab Data [facility] Lab Attestation statement: I reviewed the patient's lab results. My interpretation of these results are in the [facility] Rationale portion of this note. 01/01/25 10:59 01/01/25 10:59 Labs: Lab Results 01/01/25 Range/Units 10:59 WBC 5.2 (4.8-10.8) X10*3/uL RBC 3.88 L (4.20-5.50) X10*6/uL Hgb 11.5 L (12.0-16.0) g/dl Hct 33.9 L (37.0-47.0) % MCV 87.4 (80.0-98.0) fL MCH 29.6 (27.0-33.0) pg MCHC 33.9 (31.0-35.0) g/dl RDW 12.3 (11.0-16.0) % Plt Count 330 (160-400) X10*3/uL MPV 9.6 (9.4-12.3) fL Immature Gran % (Auto) 0.4 (0.0-0.4) % Neut % (Auto) 66.8 (45-73) % Lymph % (Auto) 25.0 (20-40) % [place] % (Auto) 6.0 (2-11) % Eos % (Auto) 1.4 (0-4) % Baso % (Auto) 0.4 (0-2) % Lymph # (Auto) 1.3 (1.2-4.9) X10*3/uL [place] # (Auto) 0.3 (0.1-1.2) X10*3/uL Eos # (Auto) 0.1 (0.0-0.4) X10*3/uL Baso # (Auto) 0.0 (0.0-0.2) X10*3/uL Abs Immat Gran (auto) 0.02 (0.00-0.03) X10*3/uL Absolute Neuts (auto) 3.4 (2.0-8.3) x10*3/uL Absolute Nucleated RBC 0.000 (0.0-0.012) X10*3/uL Nucleated RBC % (auto) 0.0 (0.0-0.2) /100WBC ESR 25 H (0-20) MM/HR Sodium 142 (135-145) mmol/L Potassium 4.1 (3.3-5.1) mmol/L Chloride 108 (96-108) mmol/L Carbon Dioxide 24 (22-29) mmol/L Anion Gap 14 (12-20) BUN 8 L (9-16) mg/dL Creatinine 0.63 (0.5-1.4) mg/dL Estim Creat Clear Calc 110.9 Estimated GFR > 60 Random Glucose 82 (60-115) mg/dL Calcium 9.0 (8.4-10.2) mg/dL Magnesium 1.7 (1.6-2.6) mg/dL Total Bilirubin 0.2 (0.0-1.0) mg/dL AST 25 (5-31) U/L ALT 16 (0-31) U/L Alkaline Phosphatase 69 (39-117) U/L C-Reactive Protein < 0.10 (< or = 0.50) mg/dL Total Protein 7.1 (6.5-8.0) g/dL Albumin 4.2 (3.5-5.0) g/dL Independent Interpretation I performed an independent interpretation of an: Ultrasound and CT Scan Interpretation: My interpretation is in agreement with the radiologist's impression of this imaging study. L CLINICAL HISTORY: bilateral lower leg pain, swelling, concern DVT Venous duplex ultrasound bilateral lower extremity COMPARISON: None provided. FINDINGS: The visualized deep veins are fully compressible with normal Doppler color flow and spectral tracings. No popliteal cyst. IMPRESSION: 1. Negative for bilateral lower extremity deep vein thrombosis. This document has been electronically signed by: Fan Allison MD on 01/01/2025 12:59:36 Dictated By: Fan Allison MD Signed By: Electronically signed by Fan Allison MD 01/01/25 1301 Radiology Impression Discussion of test interpretation with radiology: I have reviewed the radiologist's reading. Discharge Plan Discharge Clinical Impression: Cervical radiculopathy Lower extremity pain Qualifiers: Laterality: bilateral Qualified Code(s): M79.604 - Pain in right leg Patient Disposition: Home, Self-Care Instructions: Cervical Radiculopathy (ED), Leg Pain (ED) Additional Instructions: Your work up today was consistent with cervical radiculopathy. Your blood work and US were unremarkable. Please be sure to talk to your PCP about a physical therapy referral. Take your prescription starting TOMORROW. IF you are prescribed home medications and/or you are taking over the counter medications at home - it is very important you continue to do so as prescribed / directed unless told otherwise. Follow up with your primary care provider. Return to the emergency department immediately if your symptoms worsen or if you develop any numbness, tingling, dizziness, shortness of breath, difficulty breathing, chest pain, blurry vision, loss of vision, nausea, vomiting, abdominal pain, fever, chills, back pain, or any other complaints. Please see the information below about our Patient Portal. If you are not yet enrolled in the [facility] Patient Portal, you will receive an enrollment email invitation following your visit to any [facility] setting. You may also self-enroll in the Patient Portal by visiting our website: [email or web address] The following information is required to access the Patient Portal: - Your [facility] Medical Record Number - Your personal home email address (must match what is in your electronic medical record, Registration staff can assist with this) - Name - Date of Capabilities of the Patient Portal: - Message some providers - View upcoming appointments - Access your health summary, medical history, and visit history - View current conditions and allergies - View procedure and lab results - View your medications, including guidelines, side effects, and precautions - Complete pre-appointment questionnaires requested by your provider - Ready summary reports of your office visits and procedures To access the Patient Portal Mobile [employer], follow these directions: - Search [employer] in the [employer] Store or Google The [email or web address] Store - Download the Tereso - Search for [facility] - Enter your login/password Prescriptions: New prednisone 20 mg tablet 20 mg PO DAILY 7 Days Qty: 7 0RF No Action cyclobenzaprine 5 mg tablet 5 mg PO Q8H PRN (Reason: Muscle Spasm) Qty: 20 0RF baclofen 10 mg tablet 10 mg PO TID 7 Days Qty: 21 0RF naproxen 500 mg tablet 500 mg PO Q12H PRN (Reason: pain) 7 Days Qty: 20 0RF Referrals: Nate Coleman FNP-C [Primary Care Provider, Internal Medicine] Interventions: ED Discharge Assessment Last Done: 01/01/25 13:35 Discharge Date/Time: 01/01/25 13:35 Print Language: Botswanan
[2025-01-01 11:05] LABS: MANUAL DIFF FLAG NO
[2025-01-01 11:06] LABS: Hematocrit 33.9 % (37.0-47.0); Hemoglobin 11.5 g/dl (12.0-16.0); Imm Gran Abs Auto 0.02 X10*3/uL (0.00-0.03); Imm Gran Pct Auto 0.4 % (0.0-0.4); Lymphocytes Absolute Auto 1.3 X10*3/uL (1.2-4.9); Mean Corpuscular HGB Conc 33.9 g/dl (31.0-35.0); Mean Corpuscular Hemoglobin 29.6 pg (27.0-33.0); Mean Corpuscular Volume 87.4 fL (80.0-98.0); NRBC Abs Auto 0.000 X10*3/uL (0.0-0.012); NRBC Pct Auto 0.0 /100WBC (0.0-0.2); Platelet Count 330 X10*3/uL (160-400); Red Blood Count 3.88 X10*6/uL (4.20-5.50); White Blood Count 5.2 X10*3/uL (4.8-10.8)
[2025-01-01 11:19] LABS: Alanine Aminotransferase 16 U/L (0-31); Albumin Level 4.2 g/dL (3.5-5.0); Alkaline Phosphatase 69 U/L (39-117); Anion Gap 14 (12-20); Aspartate Amino Transferase 25 U/L (5-31); Blood Urea Nitrogen 8 mg/dL (9-16); Calcium 9.0 mg/dL (8.4-10.2); Carbon Dioxide 24 mmol/L (22-29); Chloride 108 mmol/L (96-108); Creatinine Clr Calc Pharmacy 110.9; Estimated Glomerular Filt Rate > 60; Magnesium 1.7 mg/dL (1.6-2.6); Potassium 4.1 mmol/L (3.3-5.1); Sodium 142 mmol/L (135-145); Total Protein 7.1 g/dL (6.5-8.0)
[2025-01-01 13:35] VITALS: BP 128/81; PULSE 73; RESP 16; TEMP 36.9; O2SAT 98
== END 2025-01-01 13:35 | disposition home or self-care (01) ==
PROVIDERS: Physician Assistant Medical; Emergency Provider Emergency Medicine
DX: M54.12 Radiculopathy, cervical region (principal); M54.2 Cervicalgia; M25.511 Pain in right shoulder; M79.605 Pain in left leg; M79.604 Pain in right leg
CPT/HCPCS: 36415; 80053; 83735; 85025; 85652; 86140; 93970; 96372; 99282; 99284; J2919

== ENCOUNTER → 2025-01-01 10:41 | Outpatient (BNV) | payer OTHER, SELFPAY | PROVIDERS: Emergency Provider Emergency Medicine; Visit Provider Radiology Diagnostic Radiology | DX: R22.43 Localized swelling, mass and lump, lower limb, bilateral (principal); M79.662 Pain in left lower leg; M79.661 Pain in right lower leg | CPT/HCPCS: 93970 ==

== ENCOUNTER 2025-01-20 08:30 | Emergency (ER) | payer OTHER, SELFPAY ==
--- NOTE | ~2025-01-20 | XR_ITS ---
EXAMINATION: XR CHEST CLINICAL INFORMATION: fall COMPARISON: 12/26/2020. TECHNIQUE: 2 views of the chest were obtained. FINDINGS: The cardiac, hilar, and mediastinal contours are normal. The lungs are clear bilaterally. There is no pneumothorax or pleural effusion. There is no focal or acute osseous or soft tissue abnormality. XR/XR chest 2V IMPRESSION: Normal chest. Electronically signed by: Jaylon Lira MD 01/20/2025 08:57 AM EDT
[2025-01-20 08:33] VITALS: BP 126/84; PULSE 93; RESP 18; TEMP 36.3; O2SAT 100; BMI 22.8
[2025-01-20 09:09] VITALS: BP 112/75; PULSE 81; RESP 12; TEMP 36.9; O2SAT 98
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
[2025-01-20 09:13] VITALS: BP 112/75; PULSE 81; RESP 12; TEMP 36.9; O2SAT 98
[2025-01-20 10:15] VITALS: BP 114/70; PULSE 78; RESP 16; TEMP 36.7; O2SAT 99
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
[2025-01-20 11:54] VITALS: BP 114/70; PULSE 78; RESP 16; TEMP 36.7; O2SAT 99
== END 2025-01-20 11:56 | disposition home or self-care (01) ==
PROVIDERS: Emergency Provider Emergency Medicine Emergency Medical Services
DX: R07.81 Pleurodynia (principal); D64.9 Anemia, unspecified; G25.81 Restless legs syndrome
CPT/HCPCS: 71046; 99283; 99284

== ENCOUNTER → 2025-01-20 08:37 | Outpatient (BNV) | payer OTHER, SELFPAY | PROVIDERS: Visit Provider Radiology Diagnostic Radiology | DX: R07.89 Other chest pain (principal); Y30.XXXA Falling, jumping or pushed from a high place, undetermined intent, initial encounter | CPT/HCPCS: 71046 ==

== ENCOUNTER 2025-04-04 12:02 | Outpatient (REF) | payer OTHER, SELFPAY ==
[2025-04-05 00:38] LABS: Bacterial Vaginosis PCR NEGATIVE (Negative); Candida Group PCR DETECTED (Not Detect); Candida glab krusei PCR NOT DETECTED (Not Detect); Trichomonas vaginalis PCR NOT DETECTED (Not Detect)
[2025-04-05 01:20] LABS: CT PCR NOT DETECTED (Not Detect.); NG PCR NOT DETECTED (Not Detect.)
== END 2025-04-04 12:03 | disposition home or self-care (01) ==
LOC: HO.LAB 12:02
PROVIDERS: Physician Assistant Medical
DX: N89.8 Other specified noninflammatory disorders of vagina (principal); N39.0 Urinary tract infection, site not specified; Z20.2 Contact with and (suspected) exposure to infections with a predominantly sexual mode of transmission
CPT/HCPCS: 81003; 81515; 87086; 87491; 87591; 99212

== ENCOUNTER 2025-04-04 12:02 | Outpatient (AMB) | payer OTHER, SELFPAY ==
[2025-04-04 12:34] VITALS: BP 104/68; PULSE 67; O2SAT 100; BMI 24.4
--- NOTE | 2025-04-04 12:34 | MHC.OFFWIV ---
Intake Vital Signs 04/04/25 12:34 Height 5 ft 3 in Weight 138 lb BMI 24.4 BP 104/68 Blood Pressure Location Lt brachial Position Sitting Pulse 67 Pulse Source Pulse Oximeter Pulse Oximetry (%) 100 Oxygen Delivery Method Room Air Intake Visit Reasons: EP UTI? Intake Note: Patient presents c/o thick, white, chunky discharge & dryness since yesterday. Patient Tobacco Use Status: Never used Tobacco Allergies No Known Allergies (No Known Allergies*) Allergy (Verified 04/04/25 12:43) HPI HPI Comments History of Present Illness Details History of Present Illness - The patient is a 29-year-old female who presents with symptoms of a suspected yeast infection. - For the past few days, she has experienced chunky white vaginal discharge and burning with urination. - She has a new sexual partner. - The patient is concerned about blood in her urine, mentioning that her mother has kidney issues and was told hematuria could be hereditary. - She denies any fever, chills, nausea, vomiting, diarrhea, back pain, or abdominal pain. - She reports no recent use of antibiotics. - The patient would also like to undergo sexually transmitted disease testing. Physical Exam General: Cooperative, healthy appearing, comfortable, no acute distress and well developed Orientation: Patient oriented x3 Respiratory: Normal respiratory effort and able to speak in complete sentences. Cardiac: RRR. No m/r/g noted. Normal S1 S2 GI: Hypoactive BS noted, non-tender non-distended. No guarding or rebound tenderness noted. Negative CVA tenderness noted. Patient was informed and verbally consented to the use of an ambient scribe for clinic note documentation during this visit. PFSH Medical History Anemia Surgical History H/O bilateral salpingectomy Family History Mother Hx pulmonary embolism History of fibromyalgia Maternal Grandmother Hx of deep venous thrombosis Social History Housing: Apartment Alcohol intake: current Alcohol intake frequency: a few times a month Patient Tobacco Use Status: Never used Tobacco Second Hand Smoke Exposure: Yes Substance Use Type: Marijuana service: No Current occupational status: employed Sexual orientation: Straight/Heterosexual Gender identity: Female Female Reproductive History Menstrual Age of Menarche: 14 Review of Systems Const All systems reviewed & are unremarkable except as noted in HPI and below Physical Exam Vital Signs: Last Vital Signs Pulse 67 04/04/25 12:34 BP 104/68 04/04/25 12:34 Pulse Ox 100 04/04/25 12:34 Oxygen Delivery Method Room Air 04/04/25 12:34 BMI result Body Mass Index 24.4 Results AMB Urinalysis, Automated UA Leukoctes 0 Luisa/uL Last Edit by Crystal Washington CMA on 04/04/25 12:48 UA Nitrite Negative Last Edit by Crystal Washington CMA on 04/04/25 12:48 UA Urobilinogen 0.2 mg/dL Last Edit by Crystal Washington CMA on 04/04/25 12:48 UA Protein 0 mg/dL Last Edit by Crystal Washington CMA on 04/04/25 12:48 UA pH 6.5 Last Edit by Crystal Washington CMA on 04/04/25 12:48 UA Blood 200 [place]/uL Last Edit by Crystal Washington CMA on 04/04/25 12:48 UA Specific [place] 1.010 Last Edit by Crystal Washington CMA on 04/04/25 12:48 UA Ketone Negative Last Edit by Crystal Washington CMA on 04/04/25 12:48 UA Bilirubin 0 mg/dL Last Edit by Crystal Washington CMA on 04/04/25 12:48 UA Glucose 0 mg/dL Last Edit by Crystal Washington CMA on 04/04/25 12:48 Results Reviewed Results Reviewed: Laboratory Last Values Urine pH (Auto) 6.5 04/04/25 12:47 Specific [place] (Auto) 1.010 04/04/25 12:47 Urine Protein (Auto) 0 mg/dL 04/04/25 12:47 Glucose (UA)(Auto) 0 mg/dL 04/04/25 12:47 Urine Ketones (Auto) Negative 04/04/25 12:47 Urine Blood (Auto) 200 [place]/uL H* 04/04/25 12:47 Urine Nitrite (Auto) Negative 04/04/25 12:47 Urine Bilirubin (Auto) 0 mg/dL 04/04/25 12:47 Urine Urobilinogen (Auto) 0.2 mg/dL 04/04/25 12:47 Leukocyte Esterase (Auto) 0 Luisa/uL 04/04/25 12:47 Assessment & Plan Assessment & Plan (1) Vaginal discharge: Code(s): N89.8 - Other specified noninflammatory disorders of vagina Plan Most likely yeast vs STI vs BV vs trich vs UTI UA 3+ blood plan - will order urine culture before treating for a UTI - will order gc/chlam and vaginosis swabs - start fluconazole 150 mg daily - will call her with the results and adjust her treatment based on the results - will follow up with PCP Orders: Orders AMB Urinalysis Automated Today Z13.9 - Encounter for screening, unspecified CT NG by PCR Vag/Cerv Today N89.8 - Other specified noninflammatory disorders of vagina Bacterial Vaginosis Panel Today N89.8 - Other specified noninflammatory disorders of vagina Urine Culture Today N39.0 - Urinary tract infection, site not specified Medications: New fluconazole may repeat second dose 72 hrs after first dose if symptoms persist 150 mg PO Q3D 2 tabs 0RF Coding Level of Care Code Est Pt Level 3 (28140) Diagnoses Vaginal discharge N89.8
== END 2025-04-04 13:51 | disposition home or self-care (01) ==
PROVIDERS: Visit Provider Physician Assistant Medical
DX: Z13.9 Encounter for screening, unspecified (principal); N89.8 Other specified noninflammatory disorders of vagina

== ENCOUNTER 2025-04-07 13:19 | Emergency (ER) | payer OTHER, SELFPAY ==
--- NOTE | 2025-04-07 13:43 | ED_ITS ---
HPI - General Adult General Chief complaint: General Medical Stated complaint: Rib Back Pain Diff Breathing Time Seen by Provider: 04/07/25 16:56 Source: patient and family (patient's mother) Mode of arrival: ambulatory Limitations: no limitations History of Present Illness ED Provider: Joana Chavez PA-C HPI narrative: Patient is a 29 year old female with a history of restless leg syndrome and anemia presenting to the emergency department today with bilateral, right worse than left, rib pain. Patient states that she has had bilateral rib pain, right worse than left, over the last 3 weeks. Patient states that she is concerned she has a pulmonary embolism. 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 Patient states that her mother had a pulmonary embolism and she is concerned she may have one as well. Patient denies any other complaints at this time. Related Data Previous Rx's ?Medication ?Instructions ?Recorded fluconazole 150 mg tablet 150 mg PO Q3D #2 tabs Allergies Allergy/AdvReac Type Severity Reaction Status Date / Time No Known Allergies (No Known Allergy Verified 04/07/25 13:46 Allergies*) Review of Systems 2 Constitutional: Constitutional: Reports as per HPI Eyes: Eyes: Reports as per HPI ENT: Reports as per HPI Cardiovascular: Cardiovascular: Reports as per HPI Respiratory: Respiratory: Reports as per HPI Gastrointestinal: Gastrointestinal: Reports as per HPI Genitourinary: Genitourinary: Reports as per HPI Musculoskeletal: Musculoskeletal: Reports as per HPI Integumentary/Breasts: Skin/Breast: Reports as per HPI Neurologic: Reports as per HPI Psychiatric: Psychiatric: Reports as per HPI Endocrine: Endocrine: Reports as per HPI Hematologic/Lymphatic: Hematologic/Lymphatic: Reports as per HPI Allergic/Immunologic: Allergic/Immunologic: Reports as per HPI PMF Past Medical History Attestation statement: The following information was validated with the patient. (all information validated with the patient's mother) Source: old records reviewed, obtained from family (patient's mother provided additional history and confirmed the history provided by the patient. ) and nursing notes reviewed Medical History Anemia Surgical History H/O bilateral salpingectomy Family History Family History Mother Hx pulmonary embolism History of fibromyalgia Maternal Grandmother Hx of deep venous thrombosis Social History Social History Housing: Apartment Alcohol intake: current Alcohol intake frequency: a few times a month Patient Tobacco Use Status: Never used Tobacco Second Hand Smoke Exposure: Yes Substance Use Type: Marijuana Advance Directives: No Advance Directives Information Provided: Yes service: No Current occupational status: employed Sexual orientation: Straight/Heterosexual Gender identity: Female Physical Exam ED Vital Signs: Vital Signs - 24 hr 04/07/25 13:44 04/07/25 17:21 Temperature 97.6 F 97.6 F Pulse Rate 84 84 Respiratory Rate 18 18 Blood Pressure 119/70 119/70 Pulse Oximetry 98 98 Oxygen Delivery Method Room Air Room Air BMI result Body Mass Index 22.5 Const General: cooperative, no acute distress, alert and awake Nutritional Appearance: well nourished Orientation/consciousness: patient oriented x3 HENMT Head: Yes normal to inspection and Yes atraumatic Ears: hearing grossly normal bilaterally and external ears normal General nose exam: Normal external nose present, no nasal discharge noted and no epistaxis Face and sinus: Yes normal facial exam, No abrasion and No laceration Mouth: Normal oral and palatal mucosa present, no drooling and no muffled voice Eyes General: appearance normal, both eyes and all related structures Periorbital: periorbital findings normal Eyelids: Yes eyelids normal Conjunctivae: conjunctivae normal Pupils: Equal, round and reactive pupils present EOM: EOMs intact bilaterally Neck Neck: Yes normal visual inspection and Yes full ROM Resp Effort & Inspection: normal respiratory effort and able to speak in complete sentences Neuro General: patient oriented x3, moves all extremities and CN's II-XI intact bilaterally Cranial nerves: Yes Equal, round and reactive pupils present Cognition (Neuro): normal cognition Extrem General: Yes normal to inspection, Yes full ROM and Yes capillary refill normal Psych Appearance: grossly normal Mental Status: mental status grossly normal Affect: normal affect Attitude: cooperative Thought process: Normal thought process present Thought content: Normal thought content present Insight: Good insight present (Psych) Course Course Course Narrative: Rapid medical examination performed in triage by Joana Chavez PA-C: Patient is a 29 year old assigned female at presenting to the emergency department with continued rib pain and concern for pulmonary embolism. Detailed physical exam and review of systems are deferred to the psychiatric clinician. Labs ordered. Patient placed back in the waiting room pending room availability and results. Medical Decision Making Medical Decision Making [facility] Narrative: Patient is a 29 year old female with a history of restless leg syndrome and anemia presenting to the emergency department today with bilateral, right worse than left, rib pain. Patient's physical exam was as noted in the physical exam portion of this note. Patient's blood work was unremarkable - including a negative d dimer I explained my physical exam findings as well as all test results to the patient and the patient's mother. I answered all questions asked by the patient and the patient's mother. The patient and her mother expressed that they wanted to have the patient undergo a CT scan of the lungs to definitively rule out a pulmonary embolism. I explained to them that the patient has no evidence in her physical exam or work up to cause concern for a pulmonary embolism but given the patient's mother's history and their concern - the test was ordered. Shortly after, the patient requested to be discharged rather than wait to have the scan done. I stressed the importance of the patient taking her medication as directed (either prescribed or as the over the counter packaging recommends). I stressed the importance of the patient following up with her primary care provider. I stressed the importance of the patient returning to the emergency department immediately if her symptoms were to worsen or if she were to develop any dizziness, shortness of breath, difficulty breathing, chest pain, blurry vision, loss of vision, nausea, vomiting, abdominal pain, fever, chills, back pain, or any other complaints. Patient and the patient's mother verbalized agreement and understanding with this treatment plan and discharge. Differential Diagnosis Differential Diagnoses: The differential diagnosis associated with the presentation includes Rib pain Body pain Pleurisy Costochondritis Admission/Observation Consideration of admission/observation: Escalation of care including admission/observation considered Patient would have been admitted to the hospital had her work up had any findings where hospital admission was appropriate and her clinical presentation warranted hospital admission. Lab Data [facility] Lab Attestation statement: I reviewed the patient's lab results. My interpretation of these results are in the MDM Rationale portion of this note. 04/07/25 14:39 04/07/25 14:39 Labs: Lab Results 04/07/25 Range/Units 14:39 WBC 7.4 (4.8-10.8) X10*3/uL RBC 4.38 (4.20-5.50) X10*6/uL Hgb 13.4 (12.0-16.0) g/dl Hct 40.5 (37.0-47.0) % MCV 92.5 (80.0-98.0) fL MCH 30.6 (27.0-33.0) pg MCHC 33.1 (31.0-35.0) g/dl RDW 12.6 (11.0-16.0) % Plt Count 359 (160-400) X10*3/uL MPV 9.5 (9.4-12.3) fL Immature Gran % (Auto) 0.5 H (0.0-0.4) % Neut % (Auto) 75.0 H (45-73) % Lymph % (Auto) 18.3 L (20-40) % Edwards % (Auto) 5.4 (2-11) % Eos % (Auto) 0.5 (0-4) % Baso % (Auto) 0.3 (0-2) % Lymph # (Auto) 1.4 (1.2-4.9) X10*3/uL Edwards # (Auto) 0.4 (0.1-1.2) X10*3/uL Eos # (Auto) 0.0 (0.0-0.4) X10*3/uL Baso # (Auto) 0.0 (0.0-0.2) X10*3/uL Abs Immat Gran (auto) 0.04 H (0.00-0.03) X10*3/uL Absolute Neuts (auto) 5.5 (2.0-8.3) x10*3/uL Absolute Nucleated RBC 0.000 (0.0-0.012) X10*3/uL Nucleated RBC % (auto) 0.0 (0.0-0.2) /100WBC D-Dimer High Sensitivty < 150 NG/ML Sodium 138 (135-145) mmol/L Potassium 3.9 (3.3-5.1) mmol/L Chloride 103 (96-108) mmol/L Carbon Dioxide 28 (22-29) mmol/L Anion Gap 11 L (12-20) BUN 14 (9-16) mg/dL Creatinine 0.64 (0.5-1.4) mg/dL Estim Creat Clear Calc 109.1 Estimated GFR > 60 Random Glucose 83 (60-115) mg/dL Calcium 9.4 (8.4-10.2) mg/dL Total Bilirubin 0.3 (0.0-1.0) mg/dL AST 24 (5-31) U/L ALT 20 (0-31) U/L Alkaline Phosphatase 59 (39-117) U/L Total Protein 7.6 (6.5-8.0) g/dL Albumin 4.6 (3.5-5.0) g/dL Beta HCG, Quant < 2 mIU/mL Independent Historian Clinical information obtained from an independent historian. History obtained from or confirmed by: Parent (patient's mother provided additional history and confirmed the history provided by the patient. ) Tests considered The following testing was considered but not selected: I attempted to obtain a CT PE study, per the patient and her mother's request however, the patient opted to be discharged before the test could be performed as noted in the MDM Rationale portion of this note. Discharge Plan Discharge Clinical Impression: Rib pain, Pleurisy Patient Disposition: Home, Self-Care Instructions: Pleurisy (DC) Additional Instructions: IF you are prescribed home medications and/or you are taking over the counter medications at home - it is very important you continue to do so as prescribed / directed unless told otherwise by a healthcare provider. Follow up with your primary care provider. Do your best to stay well hydrated and rest. Return to the emergency department immediately if your symptoms worsen or if you develop any numbness, tingling, dizziness, shortness of breath, difficulty breathing, chest pain, blurry vision, loss of vision, nausea, vomiting, abdominal pain, fever, chills, back pain, or any other complaints. Please see the information below about our Patient Portal. If you are not yet enrolled in the [facility] Patient Portal, you will receive an enrollment email invitation following your visit to any [facility] care setting. You may also self-enroll in the Patient Portal by visiting our website: [email or web address] The following information is required to access the Patient Portal: - Your [facility] Medical Record Number - Your personal home email address (must match what is in your electronic medical record, Registration staff can assist with this) - Name - Date of Capabilities of the Patient Portal: - Message some providers - View upcoming appointments - Access your health summary, medical history, and visit history - View current conditions and allergies - View procedure and lab results - View your medications, including guidelines, side effects, and precautions - Complete pre-appointment questionnaires requested by your provider - Ready summary reports of your office visits and procedures To access the Patient Portal Mobile [employer], follow these directions: - Search [employer] in the [employer] Store or [employer] Store - Download the Tereso - Search for [facility] - Enter your login/password Prescriptions: No Action fluconazole 150 mg tablet 150 mg PO Q3D Qty: 2 0RF Rx Instructions: may repeat second dose 72 hrs after first dose if symptoms persist Referrals: Nate Coleman FNP-C [Primary Care Provider, Internal Medicine] Interventions: ED Discharge Assessment Last Done: 04/07/25 17:21 Discharge Date/Time: 04/07/25 17:21 Print Language: Hungarian
[2025-04-07 13:44] VITALS: BP 119/70; PULSE 84; RESP 18; TEMP 36.4; O2SAT 98; BMI 22.5
[2025-04-07 14:42] LABS: MANUAL DIFF FLAG NO
[2025-04-07 14:45] LABS: Hematocrit 40.5 % (37.0-47.0); Hemoglobin 13.4 g/dl (12.0-16.0); Imm Gran Abs Auto 0.04 X10*3/uL (0.00-0.03); Imm Gran Pct Auto 0.5 % (0.0-0.4); Lymphocytes Absolute Auto 1.4 X10*3/uL (1.2-4.9); Mean Corpuscular HGB Conc 33.1 g/dl (31.0-35.0); Mean Corpuscular Hemoglobin 30.6 pg (27.0-33.0); Mean Corpuscular Volume 92.5 fL (80.0-98.0); NRBC Abs Auto 0.000 X10*3/uL (0.0-0.012); NRBC Pct Auto 0.0 /100WBC (0.0-0.2); Platelet Count 359 X10*3/uL (160-400); Red Blood Count 4.38 X10*6/uL (4.20-5.50); White Blood Count 7.4 X10*3/uL (4.8-10.8)
[2025-04-07 14:53] LABS: D Dimer High Sensitivity < 150 NG/ML
[2025-04-07 14:59] LABS: Alanine Aminotransferase 20 U/L (0-31); Albumin Level 4.6 g/dL (3.5-5.0); Alkaline Phosphatase 59 U/L (39-117); Anion Gap 11 (12-20); Aspartate Amino Transferase 24 U/L (5-31); Blood Urea Nitrogen 14 mg/dL (9-16); Calcium 9.4 mg/dL (8.4-10.2); Carbon Dioxide 28 mmol/L (22-29); Chloride 103 mmol/L (96-108); Creatinine Clr Calc Pharmacy 109.1; Estimated Glomerular Filt Rate > 60; Potassium 3.9 mmol/L (3.3-5.1); Sodium 138 mmol/L (135-145); Total Protein 7.6 g/dL (6.5-8.0)
[2025-04-07 17:21] VITALS: BP 119/70; PULSE 84; RESP 18; TEMP 36.4; O2SAT 98
== END 2025-04-07 17:21 | disposition home or self-care (01) ==
PROVIDERS: Physician Assistant Medical; Emergency Provider Emergency Medicine
DX: R09.1 Pleurisy (principal); R07.89 Other chest pain
CPT/HCPCS: 36415; 80053; 84702; 85025; 85379; 99282; 99283

== ENCOUNTER 2025-04-14 05:04 | Emergency (ER) | payer OTHER, SELFPAY ==
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
[2025-04-14 05:07] VITALS: BP 110/63; PULSE 99; RESP 20; TEMP 36.3; O2SAT 100; BMI 22.1
[2025-04-14 06:34] VITALS: BP 111/64; PULSE 79; RESP 20; TEMP 36.5; O2SAT 99
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
[2025-04-14 09:22] VITALS: BP 111/64; PULSE 79; RESP 20; TEMP 36.5; O2SAT 99
== END 2025-04-14 09:22 | disposition home or self-care (01) ==
PROVIDERS: Emergency Provider Emergency Medicine
DX: S29.9XXA Unspecified injury of thorax, initial encounter (principal); M54.9 Dorsalgia, unspecified; M54.2 Cervicalgia; M25.511 Pain in right shoulder; R07.89 Other chest pain; G25.81 Restless legs syndrome; D64.9 Anemia, unspecified; Y04.2XXA Assault by strike against or bumped into by another person, initial encounter; Y93.9 Activity, unspecified; Y92.9 Unspecified place or not applicable; Y99.9 Unspecified external cause status
CPT/HCPCS: 71110; 72040; 96372; 99284; J1885

== ENCOUNTER → 2025-04-14 07:26 | Outpatient (BNV) | payer OTHER, SELFPAY | PROVIDERS: Emergency Provider Emergency Medicine; Visit Provider Radiology Vascular & Interventional Radiology | DX: R07.89 Other chest pain (principal); M54.2 Cervicalgia; Y04.0XXA Assault by unarmed brawl or fight, initial encounter | CPT/HCPCS: 71110; 72040 ==